=== PATIENT | male | born 1960 | race Caucasian/White ===

== ENCOUNTER 2017-04-12 08:52 | Day surgery (SDC) | payer OTHER ==
[2017-04-10 10:23] VITALS: BMI 28.3
[~2017-04-12 08:52] MED LIST: DEXAMETHASONE SOD PHOSPHATE 10 MG/ML 1 ML VIAL IV ONE; HEPARIN SODIUM,PORCINE 5,000 UNIT/ML 1 ML VIAL SQ ONE; LACTATED RINGERS 1,000 ML IV SCH; LIDOCAINE 1% 20 ML VIAL (10MG/ML) FOR IV START INTRADERMA PRN; MIDAZOLAM 2 MG/2 ML VIAL IV PRN; ONDANSETRON 4 MG/2 ML VIAL IVP ONE; SCOPOLAMINE 1.5MG/72HR PATCH TRANSDERM ONE; ceFAZolin IN SWFI 2 GM/20 ML SYRINGE IVP ONE
--- NOTE | 2017-04-12 11:35 | P.GSHP ---
History of Present Illness H&P Date: 04/12/17 Chief Complaint: Right inguinal hernia This a 56-year-old male referred from Dr. Hernández. Patient rents today for laparoscopic robotic system repair of right inguinal hernia. Past Medical History Past Medical History: Hypertension, Rheumatoid Arthritis (RA) Additional Past Medical History / Comment(s): INGUINAL HERNIA History of Any Multi-Drug Resistant Organisms: None Reported Past Surgical History: Appendectomy, Hernia Repair Additional Past Surgical History / Comment(s): UMBILICAL HERNIA Past Anesthesia/Blood Transfusion Reactions: No Reported Reaction Smoking Status: Current every day smoker - Past Family History Mother Additional Family Medical History / Comment(s): heart problems Father Family Medical History: No Reported History Medications and Allergies Home Medications Medication Instructions Recorded Confirmed Type Cyclobenzaprine [Flexeril] 10 mg PO DAILY PRN 01/30/15 04/12/17 History HYDROcodone/APAP 7.5-325MG [[place] 1 each PO Q4H PRN #60 tab 02/04/15 04/10/17 Rx 7.5] Lisinopril [Zestril] 5 mg PO DAILY 04/10/17 04/10/17 History Temazepam [Restoril] 15 mg PO HS PRN 04/10/17 04/12/17 History Allergies Allergy/AdvReac Type Severity Reaction Status Date / Time No Known Allergies Allergy Verified 04/12/17 08:58 Surgical - Exam Vital Signs Temp Pulse Resp BP Pulse Ox 98 F 68 16 117/79 97 04/12/17 09:03 04/12/17 09:03 04/12/17 09:03 04/12/17 09:03 04/12/17 09:03 - General well developed, no distress - Eyes PERRL - ENT normal pinna - Neck no masses - Respiratory normal expansion - Cardiovascular Rhythm: regular - Abdomen Abdomen: soft, non tender Hernia: inguinal (Reducible right inguinal hernia) Assessment and Plan Assessment: Right inguinal hernia. We'll perform laparoscopic robotic assist repair.
[2017-04-12] MEDS ORDERED: KETOROLAC 30 MG/ML 1 ML VIAL ONE (12:50)
[2017-04-12] MEDS ORDERED: GLYCOPYRROLATE 0.2 MG/ML 2 ML VIAL ONE (12:50)
[2017-04-12] MEDS ORDERED: fentaNYL (PF) 50 MCG/ML 2 ML AMP ONE (12:50)
[2017-04-12] MEDS ORDERED: PHENYLEPHRINE-0.9% NACL SYG 1 MG/10 ML SYRINGE ONE (12:50)
[2017-04-12] MEDS ORDERED: ROCURONIUM BROMIDE 10 MG/ML 10 ML VIAL IV ONE (12:50)
[2017-04-12] MEDS ORDERED: PROPOFOL 10 MG/ML 20 ML VIAL IV ONE (12:50)
[2017-04-12] MEDS ORDERED: NEOSTIGMINE 1 MG/ML 10 ML VIAL ONE (12:50)
[2017-04-12] MEDS ORDERED: SUCCINYLCHOLINE CHLORIDE VIAL 200 MG/10 ML VIAL IV ONE (12:50)
[2017-04-12] MEDS ORDERED: MIDAZOLAM 2 MG/2 ML VIAL ONE (12:50)
[2017-04-12] MEDS ORDERED: LIDOCAINE 1% INJ 10MG/ML (20 ML MDV) ONE (12:50)
[2017-04-12] MEDS ORDERED: BUPIVACAINE (PF) 0.25% 30 ML VIAL SQ ONE (13:15)
[2017-04-12] MEDS: HYDROmorphone 0.5 MG/0.5 ML SYRINGE IVP PRN ×3 (14:10→14:25)
[2017-04-12 14:23] VITALS: TEMP 98.1
[2017-04-12 15:38] VITALS: BP 126/70; PULSE 78; RESP 18
--- NOTE | 2017-04-12 18:40 | P.OP ---
Date of Procedure: 04/12/17 Preoperative Diagnosis: Right inguinal hernia Postoperative Diagnosis: Right inguinal hernia Adhesions Right inguinal lipoma Procedure(s) Performed: Laparoscopic robotic spare of right inguinal hernia Laparoscopic lysis of adhesions Laparoscopic excision of right cord lipoma Anesthesia: VERENICE Surgeon: Julien Headley Estimated Blood Loss (ml): 5 Pathology: other (Right cord lipoma) Condition: stable Disposition: PACU Description of Procedure: The patient's placed on the operating table in the supine position. The patient received general anesthesia. The patient's abdomen was prepped and draped in usual sterile fashion. The skin was anesthetized 1% local Xylocaine at the incision sites. Using an 11 blade a skin incision was made at the umbilicus. The fascia was grasped with a [place] and then the peritoneal cavity was entered with the Veress needle. Position of the Veress needle was confirmed with a positive drop test. After adequate insufflation a 5 mm trocar was placed into the peritoneal cavity. The Laparoscope was placed the peritoneal cavity. And a robotic 8 mm trocar was placed in the right lateral position and then another 8 mm robotic trochars placed in the left lateral position. The original 5 mm trocar was exchanged for a 12 mm trocar. There were extensive adhesions in the midline. This was related to previous ventral hernia repair. Using electrocautery the adhesions were lysed. The patient was placed in reverse Trendelenburg and then the patient was docked to the robot. Next the peritoneum over top of the hernia was incised and then using blunt and sharp dissection and electrocautery the hernia sac was dissected free from the floor of the inguinal canal. The hernia sac was completely reduced into the peritoneal cavity. Lipoma was dissected free from the spermatic cord and transected. And then using the Pro telecommunications officer mesh the hernia was repaired. The peritoneum was then sutured with 20V lock suture. The patient was then undocked the robot. The needle was withdrawn from the peritoneal cavity. The lipoma was sent to pathology. The umbilical trocar site was closed with 0 Ethibond suture. The skin was closed interrupted 3-0 Monocryl suture. Dermabond dressing was applied. Patient was sent to recovery in stable condition.
== END 2017-04-12 15:40 | disposition home or self-care (01) ==
LOC: OR 08:52
PROVIDERS: ATTEND Surgery
DX: K40.90 Unilateral inguinal hernia, without obstruction or gangrene, not specified as recurrent (principal); K66.0 Peritoneal adhesions (postprocedural) (postinfection); D17.6 Benign lipomatous neoplasm of spermatic cord; I10 Essential (primary) hypertension; M06.9 Rheumatoid arthritis, unspecified; F17.200 Nicotine dependence, unspecified, uncomplicated; Z79.899 Other long term (current) drug therapy
CPT/HCPCS: 88302; 49650; C1781; J2250; J0330; J1100; J2710; J0690; J2405; J2001; J3010; J1885; J2370; J2704; J1170; 88304

== ENCOUNTER 2018-03-27 21:04 | Emergency (ER) | payer OTHER ==
[2018-03-27 21:15] VITALS: RESP 18; TEMP 98.2
[2018-03-27] MEDS ORDERED: DEXAMETHASONE SOD PHOSPHATE 10 MG/ML 1 ML VIAL IM STA (21:29)
[2018-03-27] MEDS ORDERED: KETOROLAC 60 MG/2 ML VIAL IM STA (21:29)
[2018-03-27] MEDS ORDERED: ORPHENADRINE 30 MG/ML 2 ML VIAL IM STA (21:29)
--- NOTE | 2018-03-27 21:49 | XR ---
EXAMINATION TYPE: XR shoulder complete RT DATE OF EXAM: 03/27/2018 COMPARISON: NONE HISTORY: Pain TECHNIQUE: 3 views FINDINGS: I see no fracture nor dislocation. Glenohumeral joint is anatomic. There are no pathologic calcifications IMPRESSION: Negative right shoulder exam.
--- NOTE | 2018-03-27 21:59 | ED ---
General Adult HPI - General Chief complaint: Extremity Problem,Nontraumatic Stated complaint: rt shoulder pain Time Seen by Provider: 03/27/18 21:18 Source: patient, RN notes reviewed, old records reviewed Mode of arrival: ambulatory Limitations: no limitations - History of Present Illness Initial comments: Patient is a 57 year old male presents to ED for R shoulder pain and neck pain after using log splitter today. He has chronic right shoulder pain and has history of RA. Patient states that his pain is owrse with movement. No falls or trauma. - Related Data Home Medications Medication Instructions Recorded Confirmed Cyclobenzaprine [Flexeril] 10 mg PO TID PRN 01/30/15 03/27/18 Lisinopril [Zestril] 5 mg PO DAILY 04/10/17 03/27/18 Temazepam [Restoril] 15 mg PO HS PRN 04/10/17 03/27/18 HYDROcodone/APAP 10-325MG [[place] 1 tab PO Q6H PRN 03/27/18 03/27/18 10-325] Previous Rx's Medication Instructions Recorded Dexamethasone 0.75 mg PO DAILY #12 tab 03/27/18 Allergies Allergy/AdvReac Type Severity Reaction Status Date / Time No Known Allergies Allergy Verified 03/27/18 21:41 Review of Systems ROS Statement: Those systems with pertinent positive or pertinent negative responses have been documented in the HPI. ROS Other: All systems not noted in ROS Statement are negative. Past Medical History Past Medical History: Hypertension, Rheumatoid Arthritis (RA) Additional Past Medical History / Comment(s): INGUINAL HERNIA History of Any Multi-Drug Resistant Organisms: None Reported Past Surgical History: Appendectomy, Hernia Repair Additional Past Surgical History / Comment(s): UMBILICAL HERNIA Past Anesthesia/Blood Transfusion Reactions: No Reported Reaction Past Psychological History: No Psychological Hx Reported Smoking Status: Current every day smoker - Past Family History Mother Additional Family Medical History / Comment(s): heart problems Father Family Medical History: No Reported History General Exam - General Exam Comments Initial Comments: Well appearing 57 juana ol dmale, no distress. Limitations: no limitations General appearance: alert, in no apparent distress Head exam: Present: atraumatic, normocephalic, normal inspection Eye exam: Present: normal appearance, PERRL, EOMI. Absent: scleral icterus, conjunctival injection, periorbital swelling ENT exam: Present: normal exam, mucous membranes moist Neck exam: Present: normal inspection. Absent: tenderness, meningismus, lymphadenopathy Respiratory exam: Present: normal lung sounds bilaterally. Absent: respiratory distress, wheezes, rales, rhonchi, stridor Cardiovascular Exam: Present: regular rate, normal rhythm, normal heart sounds. Absent: systolic murmur, diastolic murmur, rubs, gallop, clicks Extremities exam: Present: normal inspection, full ROM, normal capillary refill. Absent: tenderness, pedal edema, joint swelling, calf tenderness Right Shoulder Exam: Present: normal inspection, tenderness (over shoulder and trapeziuw). Absent: full ROM (unable to abduct greatere than 90 degrees. Patient reports chronic. ) Upper Arm exam: Present: normal inspection, full ROM Back exam: Present: normal inspection Neurological exam: Present: alert, oriented X3, CN II-XII intact Psychiatric exam: Present: normal affect, normal mood Skin exam: Present: warm, dry, intact, normal color. Absent: rash Course Vital Signs 03/27/18 03/27/18 21:10 22:23 Temperature 98.2 F Pulse Rate 82 83 Respiratory 18 18 Rate Blood Pressure 159/86 152/91 O2 Sat by Pulse 97 94 L Oximetry Medical Decision Making - Medical Decision Making 57 year old male with acute exacerbation of chronic right shoulder pain. Worse today after using aeronautical engineering technologist. Patient reports worse with memvement. He can chronically not abduct or flex shoulder greater than 90 degrees. Concernn for a chronic rotator cuff tear. Patient given IM toradol, norflex, and decadron. Will DC with medrol dose pack, patient already takes nroco and flexeril. Discussed using ibuprofen. Discussed close follow up with PCP. Return parameters discussed. - Radiology Data Radiology results: report reviewed Normal shoulder xray. Disposition Clinical Impression: Rotator cuff dysfunction, Neck strain Disposition: HOME SELF-CARE Condition: Good Instructions: Rotator Cuff Injury (ED), Muscle Spasm (ED) Additional Instructions: Patient advised to follow-up with primary care physician. Continue taking medication as prescribed, add steroid pack. Return to emergency department if any alarming signs or symptoms occur. Prescriptions: Dexamethasone 0.75 mg PO DAILY #12 tab Is patient prescribed a controlled substance at d/c from ED?: No Referrals: Ulysses Hernández Jr, [Primary Care Provider] - 1-2 days Time of Disposition: 21:58
[2018-03-27 22:24] VITALS: BP 152/91; PULSE 83
== END 2018-03-27 22:29 | disposition home or self-care (01) ==
LOC: EC 21:04
DX: S16.1XXA Strain of muscle, fascia and tendon at neck level, initial encounter (principal); M79.9 Soft tissue disorder, unspecified; M25.511 Pain in right shoulder; I10 Essential (primary) hypertension; M06.9 Rheumatoid arthritis, unspecified; F17.200 Nicotine dependence, unspecified, uncomplicated; Z79.899 Other long term (current) drug therapy
CPT/HCPCS: 73030; 99284; 96372 ×3; J1100; J2360; J1885

== ENCOUNTER 2018-05-07 07:43 | Day surgery (SDC) | payer OTHER ==
[2018-05-03 08:47] VITALS: BMI 28.5
[~2018-05-07 07:43] MED LIST changes: -DEXAMETHASONE SOD PHOSPHATE 10 MG/ML 1 ML VIAL IV ONE; -LACTATED RINGERS 1,000 ML IV SCH; -LIDOCAINE 1% 20 ML VIAL (10MG/ML) FOR IV START INTRADERMA PRN; -MIDAZOLAM 2 MG/2 ML VIAL IV PRN; -ONDANSETRON 4 MG/2 ML VIAL IVP ONE; -SCOPOLAMINE 1.5MG/72HR PATCH TRANSDERM ONE
[2018-05-07] MEDS ORDERED: fentaNYL (PF) 50 MCG/ML 2 ML AMP IV ONE (08:00)
[2018-05-07] MEDS ORDERED: MIDAZOLAM 2 MG/2 ML VIAL IV ONE (08:00)
[2018-05-07] MEDS ORDERED: LIDOCAINE 1% 20 ML VIAL (10MG/ML) FOR IV START INTRADERMA ONE (08:32)
[2018-05-07] MEDS ORDERED: LACTATED RINGERS 1,000 ML IV ONE ×2 (08:32→10:39)
[2018-05-07] MEDS ORDERED: ONDANSETRON 4 MG/2 ML VIAL IVP ONE (08:49)
[2018-05-07] MEDS ORDERED: DEXAMETHASONE SOD PHOSPHATE 10 MG/ML 1 ML VIAL IV ONE (08:49)
--- NOTE | 2018-05-07 08:59 | P.GSHP ---
History of Present Illness H&P Date: 05/07/18 Chief Complaint: Recurrent right inguinal hernia This a 57-year-old male who presents today for open repair of recurrent right inguinal hernia. Patient developed a right inguinal hernia. He has a mass in his right groin. Past Medical History Past Medical History: Hypertension, Liver Disease, Rheumatoid Arthritis (RA) Additional Past Medical History / Comment(s): INGUINAL HERNIA, migraines, hepatitis C, History of Any Multi-Drug Resistant Organisms: None Reported Past Surgical History: Appendectomy, Hernia Repair Additional Past Surgical History / Comment(s): UMBILICAL HERNIA, rt inguinal hernia repair, Past Anesthesia/Blood Transfusion Reactions: No Reported Reaction Smoking Status: Current every day smoker - Past Family History Mother Family Medical History: No Reported History Additional Family Medical History / Comment(s): . Father Family Medical History: No Reported History Medications and Allergies Home Medications Medication Instructions Recorded Confirmed Type Cyclobenzaprine [Flexeril] 10 mg PO TID PRN 01/30/15 05/07/18 History Temazepam [Restoril] 15 mg PO HS PRN 04/10/17 05/07/18 History HYDROcodone/APAP 10-325MG [[place] 1 tab PO QID PRN 03/27/18 05/07/18 History 10-325] Ibuprofen [Advil] 200 mg PO Q8HR PRN 05/03/18 05/07/18 History Lisinopril [Prinivil] 5 mg PO QAM 05/03/18 05/07/18 History Allergies Allergy/AdvReac Type Severity Reaction Status Date / Time No Known Allergies Allergy Verified 05/07/18 08:22 Surgical - Exam Vital Signs Temp Pulse Resp BP Pulse Ox 98.1 F 67 16 150/79 96 05/07/18 08:20 05/07/18 08:20 05/07/18 08:20 05/07/18 08:20 05/07/18 08:20 - General well developed, well nourished, no distress - Eyes PERRL - ENT normal pinna - Neck no masses - Respiratory normal expansion - Cardiovascular Rhythm: regular - Abdomen Abdomen: soft, non tender Hernia: inguinal (Reducible right inguinal hernia) Assessment and Plan Assessment: Large reducible inguinal right inguinal hernia. We'll perform open repair. Patient aware the risk of possible orchiectomy.
--- NOTE | 2018-05-07 09:18 | P.ONQ ---
Anesthesiology Proc Note - PNB - Peripheral Nerve Block Performed Right Transversus Abdominis Single Time Out Performed: Yes (0858) Procedure Start Time: 08:58 Procedure Stop Time: 09:05 Indication: Acute Post-Operative Pain, Dx/Pain Location (Right Groin Pain), Requested by physician Sedation Type: Awake Preparation: Sterile Prep Position: Supine Catheter: None Needle Types: On-Q Needle Size: 100mm (4") Needle Gauge: 21 Technique: Ultrasound Injectate: 0.5% Ropivacaine (see comment for volume) (20ml) Blood Aspirated: No Pain Paresthesia on Injection Noted: No Resistance on Injection: Normal Events: Uneventful and Well Tolerated
[2018-05-07] MEDS ORDERED: fentaNYL (PF) 50 MCG/ML 2 ML AMP ONE (09:29)
[2018-05-07] MEDS ORDERED: GLYCOPYRROLATE 0.2 MG/ML 2 ML VIAL ONE (09:29)
[2018-05-07] MEDS ORDERED: ROPIVACAINE 5 MG/ML 30 ML VIAL ONE (09:29)
[2018-05-07] MEDS ORDERED: MIDAZOLAM 2 MG/2 ML VIAL ONE (09:29)
[2018-05-07] MEDS ORDERED: SUCCINYLCHOLINE CHLORIDE 100 MG/5 ML SYR IV ONE (09:29)
[2018-05-07] MEDS ORDERED: ePHEDrine SULFATE/0.9% NACL/PF 50 MG/5 ML SYRINGE IV ONE (09:29)
[2018-05-07] MEDS ORDERED: PROPOFOL 10 MG/ML 20 ML VIAL IV ONE (09:29)
[2018-05-07] MEDS ORDERED: ROCURONIUM BROMIDE 10 MG/ML 10 ML VIAL IV ONE (09:29)
[2018-05-07] MEDS ORDERED: NEOSTIGMINE 1 MG/ML 10 ML VIAL ONE (09:29)
[2018-05-07] MEDS ORDERED: BUPIVACAIN-EPI 0.25%-1:200,000 30 ML VIAL SQ ONE (09:53)
--- NOTE | 2018-05-07 10:54 | P.OP ---
Date of Procedure: 05/07/18 Preoperative Diagnosis: Recurrent right inguinal hernia Postoperative Diagnosis: Recurrent right inguinal hernia Procedure(s) Performed: (Open repair recurrent right inguinal hernia Anesthesia: VERENICE Surgeon: Julien Headley Estimated Blood Loss (ml): 10 Pathology: other (Hernia sac) Condition: stable Disposition: PACU Description of Procedure: DESCRIPTION OF PROCEDURE: The patient was placed in the supine position after receiving adequate anesthesia. Patients groin was prepped and draped in the usual sterile fashion. A standard hernia incision was made and the subcutaneous tissues were divided with electrocautery. The fascia of the external oblique was exposed. A johnny the fascia was made with #15 blade. The fascia was then opened with pair of Metzenbaum scissors. A Weitlaner retractor was placed in the wound and the cord structures were grasped and dissected free from the inguinal canal. A rubber Ellen drain was placed around the cord structures. The hernial sac was seen on the anterior-medial portion of the cord and this was dissected free from the cord. The hernia sac underwent a high ligation. Hernia sac was ligated with 0 Vicryl. Cirrhosis of pathology.. Using blunt finger dissection, the preperitoneal space was dissected and then the Prolene hernial mesh plug was placed into the prepared space. The inferior leaf was expanded. The superior leaf was secured to the pubic tubercle using 2-0 Prolene suture. The lateral portion of the superior leaf was incised and cords tied and secured to the transversalis fascia using 2-0 Prolene suture. Fascia of the external oblique was then closed using #0 Vicryl suture. The [place] drain was removed. The [place] fascia was then closed with 3-0 Vicryl suture and skin was closed with 3- 0 Monocryl. The patient tolerated the procedure well.
[2018-05-07 10:59] VITALS: RESP 18; TEMP 97.4
[2018-05-07] MEDS: HYDROmorphone 1 MG/ML 1 ML SYRINGE IVP ONE ×2 (11:05→11:10)
[2018-05-07] MEDS ORDERED: HYDROmorphone 1 MG/ML 1 ML SYRINGE IVP ONE (11:18)
[2018-05-07] MEDS ORDERED: HYDROcodone/APAP 10-325MG 1 EACH TAB PO ONE (12:55)
[2018-05-07 13:24] VITALS: BP 153/90; PULSE 71
== END 2018-05-07 13:42 | disposition home or self-care (01) ==
LOC: OR 07:43
PROVIDERS: ATTEND Surgery
DX: K40.91 Unilateral inguinal hernia, without obstruction or gangrene, recurrent (principal); M06.9 Rheumatoid arthritis, unspecified; I10 Essential (primary) hypertension; F17.210 Nicotine dependence, cigarettes, uncomplicated; Z86.19 Personal history of other infectious and parasitic diseases; Z79.891 Long term (current) use of opiate analgesic; Z79.899 Other long term (current) drug therapy
CPT/HCPCS: 49520; 64486; 88302; C1781; J2250; J1644; J1100; J2710; J2405; J3010; J1170; J2795; J0330; J2704; J0690

== ENCOUNTER 2022-02-17 20:07 | Emergency (ER) | payer OTHER ==
[2022-02-17 20:51] VITALS: BP 140/83; PULSE 91; RESP 16; TEMP 98
--- NOTE | 2022-02-17 21:37 | XR ---
PROCEDURE: XR ankle complete RT: 02/17/2022 9:04 PM CLINICAL INDICATION: swelling fall TECHNIQUE: Department protocol - 3 views COMPARISON: None FINDINGS: There is no fracture or malalignment. The soft tissues are unremarkable, other than relatively mild soft tissue swelling. IMPRESSION: No acute process.
--- NOTE | 2022-02-17 21:44 | ED ---
Lower Extremity Injury HPI - General Chief Complaint: Extremity Injury, Lower Stated Complaint: R ankle injury Time Seen by Provider: 02/17/22 21:37 Source: patient, RN notes reviewed, old records reviewed Mode of arrival: wheelchair Limitations: no limitations - History of Present Illness Initial Comments: This is a 61-year-old male DF for evaluation. Patient tripped rolling right ankle. Severe pain in the right ankle pain is worse and patient attempts to ambulate worse when he has range of motion of the right ankle no pain in the knee. No other injury noted. MD Complaint: ankle injury -: hour(s) Injury: Ankle: Right Type of Injury: inversion Place: home Severity: moderate Severity scale (1-10): 6 Improves With: nothing Worsens With: weight bearing Context: walking Associated Symptoms: swelling, able to partially bear weight, ambulatory Treatments Prior to Arrival: other (0) - Related Data Home Medications Medication Instructions Recorded Confirmed Cyclobenzaprine [Flexeril] 10 mg PO TID PRN 01/30/15 05/07/18 Temazepam [Restoril] 15 mg PO HS PRN 04/10/17 05/07/18 HYDROcodone/APAP 10-325MG [[place] 1 tab PO QID PRN 03/27/18 05/07/18 10-325] Ibuprofen [Advil] 200 mg PO Q8HR PRN 05/03/18 05/07/18 lisinopriL [Prinivil] 5 mg PO QAM 05/03/18 05/07/18 Allergies Allergy/AdvReac Type Severity Reaction Status Date / Time No Known Allergies Allergy Verified 05/07/18 08:22 Review of Systems ROS Statement: Those systems with pertinent positive or pertinent negative responses have been documented in the HPI. ROS Other: All systems not noted in ROS Statement are negative. Past Medical History Past Medical History: Hypertension, Liver Disease, Rheumatoid Arthritis (RA) Additional Past Medical History / Comment(s): INGUINAL HERNIA, migraines, hepatitis C, History of Any Multi-Drug Resistant Organisms: None Reported Past Surgical History: Appendectomy, Hernia Repair Additional Past Surgical History / Comment(s): UMBILICAL HERNIA, rt inguinal h ernia repair, Past Anesthesia/Blood Transfusion Reactions: No Reported Reaction Past Psychological History: No Psychological Hx Reported Past Alcohol Use History: None Reported Past Drug Use History: Marijuana - Past Family History Mother Family Medical History: No Reported History Additional Family Medical History / Comment(s): . Father Family Medical History: No Reported History General Exam Limitations: no limitations General appearance: alert, in no apparent distress Head exam: Present: atraumatic, normocephalic, normal inspection Eye exam: Present: normal appearance, PERRL, EOMI. Absent: scleral icterus, conjunctival injection, periorbital swelling ENT exam: Present: normal exam, mucous membranes moist Neck exam: Present: normal inspection. Absent: tenderness, meningismus, lymphadenopathy Respiratory exam: Present: normal lung sounds bilaterally. Absent: respiratory distress, wheezes, rales, rhonchi, stridor Cardiovascular Exam: Present: regular rate, normal rhythm, normal heart sounds. Absent: systolic murmur, diastolic murmur, rubs, gallop, clicks GI/Abdominal exam: Present: soft, normal bowel sounds. Absent: distended, tenderness, guarding, rebound, rigid Extremities exam: Present: tenderness, normal capillary refill, other (Tenderness to the lateral right ankle and right great toe). Absent: full ROM, pedal edema, joint swelling, calf tenderness Back exam: Present: normal inspection Neurological exam: Present: alert, oriented X3, CN II-XII intact Psychiatric exam: Present: normal affect, normal mood Skin exam: Present: warm, dry, intact, normal color. Absent: rash Course Vital Signs 02/17/22 20:48 Temperature 98 F Pulse Rate 91 Respiratory 16 Rate Blood Pressure 140/83 - Reevaluation(s) Reevaluation #1: 02/17/22 21:58 Medical record is reviewed Reevaluation #2: 02/17/22 21:58 Patient's pain is controlled Reevaluation #3: 02/17/22 21:58 Patient informed results and questions have been answered Medical Decision Making - Medical Decision Making 61 male to the emergency department for evaluation patient presents today for evaluation of right ankle sprain pain. Patient given ankle stirrup pain control can be discharged home - Radiology Data Radiology results: report reviewed (X-ray right ankle is negative for acute disease), image reviewed Disposition Clinical Impression: Right ankle sprain Disposition: HOME SELF-CARE Condition: Good Instructions (If sedation given, give patient instructions): Ankle Sprain (ED) Is patient prescribed a controlled substance at d/c from ED?: No Referrals: Ulysses Hernández Jr, DO [Primary Care Provider] - 1-2 days Time of Disposition: 21:50
[2022-02-17] MEDS ORDERED: IBUPROFEN 600 MG STARTER PACK 4 TAB BTL PO STA (22:00)
[2022-02-17] MEDS ORDERED: ACET/COD 300 MG/30 MG STARTER PACK 6 TAB BTL PO STA (22:00)
== END 2022-02-17 22:35 | disposition home or self-care (01) ==
LOC: EC 20:07
DX: S93.401A Sprain of unspecified ligament of right ankle, initial encounter (principal); I10 Essential (primary) hypertension; F12.90 Cannabis use, unspecified, uncomplicated; Z79.811 Long term (current) use of aromatase inhibitors; Z79.899 Other long term (current) drug therapy; W01.0XXA Fall on same level from slipping, tripping and stumbling without subsequent striking against object, initial encounter
CPT/HCPCS: 99283

== ENCOUNTER 2022-04-18 21:43 | Emergency (ER) | payer OTHER ==
[2022-04-18 21:54] VITALS: BP 160/74; PULSE 93; RESP 20; TEMP 98.8
== END 2022-04-18 23:12 | disposition left against medical advice (07) ==
LOC: EC 21:43
DX: Z53.21 Procedure and treatment not carried out due to patient leaving prior to being seen by health care provider (principal)
CPT/HCPCS: 87636; 99499

== ENCOUNTER 2022-04-19 09:34 | Emergency (ER) | payer OTHER ==
--- NOTE | 2022-04-19 10:31 | ED ---
General Adult HPI - General Chief complaint: Upper Respiratory Infection Stated complaint: covid+, chest pain Time Seen by Provider: 04/19/22 09:45 Source: family Mode of arrival: wheelchair Limitations: no limitations - History of Present Illness Initial comments: 61-year-old male past nuchal history of hypertension, hepatitis C who presents to the emergency department with cough, congestion and sore throat. She reports that he has had some of his symptoms since April 06 however yesterday the patient began developing a fever. He has been taking Advil for his symptoms without any improvement. He did come into the ER yesterday and was tested for influenza and Covid. He did not stay long enough to receive his results. He called his doctor's office who recommended that he go to the emergency department for evaluation. He denies any chest pain. No shortness of breath. No lower extremity edema. No other alleviating, precipitating or modifying factors - Related Data Home Medications Medication Instructions Recorded Confirmed Cyclobenzaprine [Flexeril] 10 mg PO TID PRN 01/30/15 05/07/18 Temazepam [Restoril] 15 mg PO HS PRN 04/10/17 05/07/18 HYDROcodone/APAP 10-325MG [[place] 1 tab PO QID PRN 03/27/18 05/07/18 10-325] Ibuprofen [Advil] 200 mg PO Q8HR PRN 05/03/18 05/07/18 lisinopriL [Prinivil] 5 mg PO QAM 05/03/18 05/07/18 Previous Rx's Medication Instructions Recorded Acetaminophen Tab [Tylenol Tab] 1,000 mg PO Q8HR #30 tablet 04/19/22 Codeine Phosphate/Guaifenesin 5 ml PO Q6H 3 Days #60 ml 04/19/22 [Codeine Phosphate/Guaifenesin 10-100 mg/5 ml] Nirmatrelvir/Ritonavir [Paxlovid 1 each PO BID #1 pack 04/19/22 2X150 mg-100 mg (Eua)] dexAMETHasone [Decadron] 6 mg PO DAILY #5 tablet 04/19/22 Allergies Allergy/AdvReac Type Severity Reaction Status Date / Time No Known Allergies Allergy Verified 04/19/22 09:41 Review of Systems ROS Statement: Those systems with pertinent positive or pertinent negative responses have been documented in the HPI. ROS Other: All systems not noted in ROS Statement are negative. Past Medical History Past Medical History: Hypertension, Liver Disease, Rheumatoid Arthritis (RA) Additional Past Medical History / Comment(s): INGUINAL HERNIA, migraines, hepatitis C, History of Any Multi-Drug Resistant Organisms: None Reported Past Surgical History: Appendectomy, Hernia Repair Additional Past Surgical History / Comment(s): UMBILICAL HERNIA, rt inguinal hernia repair, Past Anesthesia/Blood Transfusion Reactions: No Reported Reaction Past Psychological History: No Psychological Hx Reported Smoking Status: Current every day smoker Past Alcohol Use History: None Reported Past Drug Use History: Marijuana - Past Family History Mother Family Medical History: No Reported History Additional Family Medical History / Comment(s): . Father Family Medical History: No Reported History General Exam Limitations: no limitations General appearance: alert, in no apparent distress Head exam: Present: atraumatic, normocephalic, normal inspection Eye exam: Present: normal appearance, PERRL, EOMI. Absent: scleral icterus, conjunctival injection, periorbital swelling ENT exam: Present: normal exam, mucous membranes moist Neck exam: Present: normal inspection. Absent: tenderness, meningismus, lymphadenopathy Respiratory exam: Present: normal lung sounds bilaterally. Absent: respiratory distress, wheezes, rales, rhonchi, stridor Cardiovascular Exam: Present: regular rate, normal rhythm, normal heart sounds. Absent: systolic murmur, diastolic murmur, rubs, gallop, clicks GI/Abdominal exam: Present: soft, normal bowel sounds. Absent: distended, tenderness, guarding, rebound, rigid Extremities exam: Present: normal inspection, full ROM, normal capillary refill. Absent: tenderness, pedal edema, joint swelling, calf tenderness Back exam: Present: normal inspection Neurological exam: Present: alert, oriented X3, CN II-XII intact Psychiatric exam: Present: normal affect, normal mood Skin exam: Present: warm, dry, intact, normal color. Absent: rash Course Vital Signs 04/19/22 04/19/22 09:35 10:45 Temperature 99.1 F 98.7 F Pulse Rate 87 76 Respiratory 20 18 Rate Blood Pressure 126/80 130/87 O2 Sat by Pulse 95 97 Oximetry EKG Findings - EKG Comments: EKG Findings:: EKG demonstrates sinus rhythm with rate of 83. [place] interval 198. QRS 92. QTC of 394. No acute ST segment elevations or depressions. EKG interpreted by myself Medical Decision Making - Medical Decision Making On arrival patient was placed into room 8. A thorough history and physical exam was performed. I did review the patient's results from yesterday which Demser that he is Covid positive. Patient requesting treatment options for Covid. Instructed that he should take Tylenol every 8 hours for fever control. Recommended that he discontinue Advil. He will also be started on Decadron 6 mg daily,Paxlovid and codeine cough syrups. I did speak with the primary care physician Dr. Hernández in regards to patient's treatment. States that he would follow with the patient's tomorrow and contact him for a telehealth visit. The patient have any new or worsening symptoms, he should return to the emergency room. Patient agreeable to treatment plan he was discharged home in stable condition Disposition Clinical Impression: COVID-19, Fever Disposition: HOME SELF-CARE Condition: Stable Instructions (If sedation given, give patient instructions): COVID-19 (Coronavirus Disease 2019) (ED) Additional Instructions: Please alternate taking the Motrin and Tylenol every 4 hours for fever control. Take the Paxlovid as directed. Follow up with your doctor in 2-4 days and return for any new or worsening symptoms Prescriptions: Codeine Phosphate/Guaifenesin [Codeine Phosphate/Guaifenesin 10-100 mg/5 ml] 5 ml PO Q6H 3 Days #60 ml dexAMETHasone [Decadron] 6 mg PO DAILY #5 tablet Nirmatrelvir/Ritonavir [Paxlovid 2X150 mg-100 mg (Eua)] 1 each PO BID #1 pack Acetaminophen Tab [Tylenol Tab] 1,000 mg PO Q8HR #30 tablet Is patient prescribed a controlled substance at d/c from ED?: No Referrals: Ulysses Hernández Jr, DO [Primary Care Provider] - 1-2 days Time of Disposition: 10:31
[2022-04-19 11:01] VITALS: BP 130/87; PULSE 76; RESP 18; TEMP 98.7
== END 2022-04-19 10:45 | disposition home or self-care (01) ==
LOC: EC 09:34
DX: U07.1 COVID-19 (principal); I10 Essential (primary) hypertension; M06.9 Rheumatoid arthritis, unspecified; F17.200 Nicotine dependence, unspecified, uncomplicated; F12.90 Cannabis use, unspecified, uncomplicated; Z79.899 Other long term (current) drug therapy
CPT/HCPCS: 93005; 99284

== ENCOUNTER 2023-07-22 16:54 | Emergency (ER) | payer OTHER ==
[2023-07-22 17:07] VITALS: TEMP 98.7
[2023-07-22 17:32] LABS: Basophils % (A) 0 %; Eosinophils # (A) 0.1 k/uL (0-0.7); Eosinophils % (A) 1 %; HCT 46.4 % (39.0-53.0); HGB 15.2 gm/dL (13.0-17.5); Lymphocytes # (A) 1.8 k/uL (1.0-4.8); Lymphocytes % (A) 18 %; MCH 29.7 pg (25.0-35.0); MCHC 32.7 g/dL (31.0-37.0); MCV 90.9 fL (80.0-100.0); Mean Platelet Volume 7.7; Monocytes # (A) 0.6 k/uL (0-1.0); Monocytes % (A) 6 %; Neutrophils # (A) 7.3 k/uL (1.3-7.7); Neutrophils % (A) 73 %; Platelet Count 259 k/uL (150-450); RBC 5.11 m/uL (4.30-5.90); RDW 13.3 % (11.5-15.5); WBC 9.9 k/uL (3.8-10.6)
[2023-07-22 17:42] LABS: ALT 30 U/L (4-49); AST 26 U/L (17-59); African American GFR (CKD) 54 (>60 ml/min/1.73 sqM); Albumin 3.8 g/dL (3.5-5.0); Alkaline Phosphatase 37 U/L (38-126); Anion Gap 8 mmol/L; Blood Urea Nitrogen 15 mg/dL (9-20); Calcium 9.4 mg/dL (8.4-10.2); Carbon Dioxide 23 mmol/L (22-30); Chloride 109 mmol/L (98-107); Glucose 122 mg/dL (74-99); Non-African American GFR(CKD) 47 (>60 ml/min/1.73 sqM); Sodium 140 mmol/L (137-145); Total Bilirubin 0.3 mg/dL (0.2-1.3)
--- NOTE | 2023-07-22 17:43 | XR ---
EXAMINATION TYPE: XR chest 2V DATE OF EXAM: 07/22/2023 5:28 PM CLINICAL INDICATION:Male, 62 years old with history of cough; PHH COMPARISON: None TECHNIQUE: XR chest 2V. Frontal and lateral views of the chest.. FINDINGS: Heart is enlarged. Mediastinum unremarkable. There are central congestive changes and diffusely increased interstitial markings suggestive of mackenzie a. No focal consolidation, pleural effusion, or pneumothorax. No acute bony pathology evident. IMPRESSION: Cardiomegaly with findings suggesting vascular congestion and interstitial edema. Correlate for CHF.
--- NOTE | 2023-07-22 18:19 | ED ---
General Adult HPI - General Chief complaint: Shortness of Breath Stated complaint: SOB coughing Time Seen by Provider: 07/22/23 17:02 Source: patient, RN notes reviewed, old records reviewed Mode of arrival: ambulatory Limitations: no limitations - History of Present Illness Initial comments: 62-year-old male presents for evaluation of cough and dyspnea. Patient states that for the past 2 years he has had a persistent productive cough. He states this occurred after a COVID infection 2 years ago. He states that he also lost his voice at that time and has not regained his normal voice. He denies fever. Denies chest pain. Denies lower extremity pain or swelling. States he is a current smoker. - Related Data Home Medications Medication Instructions Recorded Confirmed HYDROcodone/APAP 10-325MG [[place] 1 tab PO QID PRN 03/27/18 07/22/23 10-325] Atorvastatin [Lipitor] 10 mg PO DAILY 07/22/23 07/22/23 Losartan [Cozaar] 25 mg PO DAILY 07/22/23 07/22/23 Previous Rx's Medication Instructions Recorded Albuterol Inhaler [Ventolin Hfa 1 - 2 puff INHALATION Q4HR PRN #1 07/22/23 Inhaler] each predniSONE 50 mg PO DAILY #5 tab 07/22/23 Allergies Allergy/AdvReac Type Severity Reaction Status Date / Time No Known Allergies Allergy Verified 07/22/23 18:58 Review of Systems ROS Statement: Those systems with pertinent positive or pertinent negative responses have been documented in the HPI. ROS Other: All systems not noted in ROS Statement are negative. Past Medical History Past Medical History: Hypertension, Liver Disease, Rheumatoid Arthritis (RA) Additional Past Medical History / Comment(s): INGUINAL HERNIA, migraines, hepatitis C, History of Any Multi-Drug Resistant Organisms: None Reported Past Surgical History: Appendectomy, Hernia Repair Additional Past Surgical History / Comment(s): UMBILICAL HERNIA, rt inguinal hernia repair, Past Anesthesia/Blood Transfusion Reactions: No Reported Reaction Past Psychological History: No Psychological Hx Reported Smoking Status: Current every day smoker Past Alcohol Use History: None Reported Past Drug Use History: Marijuana - Past Family History Mother Family Medical History: No Reported History Additional Family Medical History / Comment(s): . Father Family Medical History: No Reported History General Exam Limitations: no limitations General appearance: alert, in no apparent distress Head exam: Present: atraumatic, normocephalic Eye exam: Present: normal appearance, PERRL ENT exam: Present: normal exam Neck exam: Present: normal inspection. Absent: tenderness, meningismus Respiratory exam: Present: wheezes, decreased breath sounds. Absent: respiratory distress, rales, rhonchi Cardiovascular Exam: Present: regular rate, normal rhythm GI/Abdominal exam: Present: soft. Absent: distended, tenderness, guarding Extremities exam: Present: normal inspection, normal capillary refill. Absent: pedal edema, calf tenderness Neurological exam: Present: alert, oriented X3 Psychiatric exam: Present: normal affect, normal mood Skin exam: Present: warm, dry, intact. Absent: cyanosis, diaphoretic Course Vital Signs 07/22/23 16:57 Temperature 98.7 F Pulse Rate 83 Respiratory 22 Rate Blood Pressure 179/96 O2 Sat by Pulse 99 Oximetry Medical Decision Making - Medical Decision Making Was pt. sent in by a medical professional or institution (, PA, CIGARETTE CATCHER, urgent care, hospital, or senior living...) When possible be specific @ -No Did you speak to anyone other than the patient for history (EMS, parent, family, police, friend...)? What history was obtained from this source @ -No Did you review nursing and triage notes (agree or disagree)? Why? @ -I reviewed and agree with nursing and triage notes Were old charts reviewed (outside hosp., previous admission, EMS record, old EKG, old radiological studies, urgent care reports/EKG's, senior living records)? Report findings @ -No old charts were reviewed Differential Diagnosis (chest pain, altered mental status, abdominal pain women, abdominal pain men, vaginal bleeding, weakness, fever, dyspnea, syncope, headache, dizziness, GI bleed, back pain, seizure, CVA, palpatations, mental health, musculoskeletal)? @ -Not applicable EKG interpreted by me (3pts min.). @ -[EKG sinus rhythm rate of 73, [place] interval 205, QRS duration 94, QTc [address] segment elevation. X-rays interpreted by me (1pt min.). @ -Chest x-ray suggestive of interstitial prominence, either CHF versus pulmonary fibrosis CT interpreted by me (1pt min.). @ -None done U/S interpreted by me (1pt. min.). @ -None done What testing was considered but not performed or refused? (CT, X-rays, U/S, labs)? Why? @ -None What meds were considered but not given or refused? Why? @ -None Did you discuss the management of the patient with other professionals (professionals i.e. , PA, CIGARETTE CATCHER, lab, RT, psych nurse, social insurance specialist, mc kay machine operator, teacher, biological technical officer, hospice case manager)? Give summary @ -No Was smoking cessation discussed for >3mins.? @ -No Was critical care preformed (if so, how long)? @ -No Were there social determinants of health that impacted care today? How? (Homelessness, low income, unemployed, alcoholism, drug addiction, transportation, low edu. Level, literacy, decrease access to med. care, [facility], rehab)? @ -No Was there de-escalation of care discussed even if they declined (Discuss DNR or withdrawal of care, Hospice)? DNR status @ -No What co-morbidities impacted this encounter? (DM, HTN, Smoking, COPD, CAD, Cancer, CVA, ARF, Chemo, Hep., AIDS, mental health diagnosis, sleep apnea, morbid obesity)? @Smoker Was patient admitted / discharged? Hospital course, mention meds given and route, prescriptions, significant lab abnormalities, going to OR and other pertinent info. @ -62-year-old male with 2 years of cough, loss of voice. Chest x-ray negative for focal pneumonia, likely pulmonary fibrosis versus CHF. Troponin and BNP are unremarkable. I did CT of the soft tissue neck which did not show any laryngeal mass or acute findings. I still would recommend direct visualization with ENT. I recommend he follows closely with his primary care provider. Return parameters discussed. Undiagnosed new problem with uncertain prognosis? @ -No Drug Therapy requiring intensive monitoring for toxicity (Heparin, Nitro, Insulin, Cardizem)? @ -No Were any procedures done? @ -No Diagnosis/symptom? @ -Chronic bronchitis Acute, or Chronic, or Acute on Chronic? @ -[Chronic Uncomplicated (without systemic symptoms) or Complicated (systemic symptoms)? @ -Default Side effects of treatment? @ -No Exacerbation, Progression, or Severe Exacerbation? @ -No Poses a threat to life or bodily function? How? (Chest pain, [place], [place], pneumonia, PE, COPD, DKA, ARF, appy, cholecystitis, CVA, Diverticulitis, Homicidal, Suicidal, threat to staff... and all critical care pts) @ -No low risk at this time - Lab Data Result diagrams: 07/22/23 17:22 07/22/23 17:22 Lab Results 07/22/23 07/22/23 07/22/23 Range/Units 17:22 17:22 18:00 WBC 9.9 (3.8-10.6) k/uL RBC 5.11 (4.30-5.90) m/uL Hgb 15.2 (13.0-17.5) gm/dL Hct 46.4 (39.0-53.0) % MCV 90.9 (80.0-100.0) fL MCH 29.7 (25.0-35.0) pg MCHC 32.7 (31.0-37.0) g/dL RDW 13.3 (11.5-15.5) % Plt Count 259 (150-450) k/uL MPV 7.7 Neutrophils % 73 % Lymphocytes % 18 % Monocytes % 6 % Eosinophils % 1 % Basophils % 0 % Neutrophils # 7.3 (1.3-7.7) k/uL Lymphocytes # 1.8 (1.0-4.8) k/uL Monocytes # 0.6 (0-1.0) k/uL Eosinophils # 0.1 (0-0.7) k/uL Basophils # 0.0 (0-0.2) k/uL PT 10.0 (10.0-12.5) sec INR 0.9 (<1.2) APTT 23.8 (22.0-30.0) sec Sodium 140 (137-145) mmol/L Potassium 4.0 (3.5-5.1) mmol/L Chloride 109 H (98-107) mmol/L Carbon Dioxide 23 (22-30) mmol/L Anion Gap 8 mmol/L BUN 15 (9-20) mg/dL Creatinine 1.58 H (0.66-1.25) mg/dL Est GFR (CKD-EPI)AfAm 54 (>60 ml/min/1.73 sqM) Est GFR (CKD-EPI)NonAf 47 (>60 ml/min/1.73 sqM) Glucose 122 H (74-99) mg/dL Calcium 9.4 (8.4-10.2) mg/dL Magnesium (1.6-2.3) mg/dL Total Bilirubin 0.3 (0.2-1.3) mg/dL AST 26 (17-59) U/L ALT 30 (4-49) U/L Alkaline Phosphatase 37 L (38-126) U/L Troponin I (0.000-0.034) ng/mL NT-Pro-B Natriuret Pep pg/mL Total Protein 7.0 (6.3-8.2) g/dL Albumin 3.8 (3.5-5.0) g/dL 07/22/23 07/22/23 Range/Units 18:00 18:00 WBC (3.8-10.6) k/uL RBC (4.30-5.90) m/uL Hgb (13.0-17.5) gm/dL Hct (39.0-53.0) % MCV (80.0-100.0) fL MCH (25.0-35.0) pg MCHC (31.0-37.0) g/dL RDW (11.5-15.5) % Plt Count (150-450) k/uL MPV Neutrophils % % Lymphocytes % % Monocytes % % Eosinophils % % Basophils % % Neutrophils # (1.3-7.7) k/uL Lymphocytes # (1.0-4.8) k/uL Monocytes # (0-1.0) k/uL Eosinophils # (0-0.7) k/uL Basophils # (0-0.2) k/uL PT (10.0-12.5) sec INR (<1.2) APTT (22.0-30.0) sec Sodium (137-145) mmol/L Potassium (3.5-5.1) mmol/L Chloride (98-107) mmol/L Carbon Dioxide (22-30) mmol/L Anion Gap mmol/L BUN (9-20) mg/dL Creatinine (0.66-1.25) mg/dL Est GFR (CKD-EPI)AfAm (>60 ml/min/1.73 sqM) Est GFR (CKD-EPI)NonAf (>60 ml/min/1.73 sqM) Glucose (74-99) mg/dL Calcium (8.4-10.2) mg/dL Magnesium 1.7 (1.6-2.3) mg/dL Total Bilirubin (0.2-1.3) mg/dL AST (17-59) U/L ALT (4-49) U/L Alkaline Phosphatase (38-126) U/L Troponin I <0.012 (0.000-0.034) ng/mL NT-Pro-B Natriuret Pep 27 pg/mL Total Protein (6.3-8.2) g/dL Albumin (3.5-5.0) g/dL Disposition Clinical Impression: Chronic bronchitis Disposition: HOME SELF-CARE Condition: Fair Instructions (If sedation given, give patient instructions): Chronic Bronchitis (DC) Prescriptions: predniSONE 50 mg PO DAILY #5 tab Albuterol Inhaler [Ventolin Hfa Inhaler] 1 - 2 puff INHALATION Q4HR PRN #1 each PRN Reason: Shortness Of Breath Is patient prescribed a controlled substance at d/c from ED?: No Referrals: Ulysses Hernández Jr, DO [Primary Care Provider] - 1-2 days Time of Disposition: 19:01
[2023-07-22 18:26] LABS: INR 0.9 (<1.2); Partial Thromboplastin Time 23.8 sec (22.0-30.0)
[2023-07-22 18:35] LABS: Magnesium 1.7 mg/dL (1.6-2.3)
--- NOTE | 2023-07-22 18:39 | CT ---
EXAMINATION TYPE: CT soft tissue neck wo con DATE OF EXAM: 07/22/2023 COMPARISON: 10/31/2010 HISTORY: loss of voice, SOB CT DLP: 358 mGycm CONTRAST: Patient injected with 0 mL of Isovue 300. TECHNIQUE: Axial images at 3 mm thick sections. Reconstructed images in the coronal plane and sagitt al plane are reviewed. FINDINGS: Limited CT sections are obtained the lung apices. There appears to be some pulmonary fibro sis within the lung apices. CT neck: The torus tubarius and fossa of Rosenmuller are normal. Oven Drier Tender spaces are normal. Para nasal sinuses and mastoid air cells are clear. Parotid glands appear normal and symmetrical. Submandibular glands, are normal. Parapharyngeal spac es are normal No suspicious adenopathy is evident. The hypopharynx appears within normal limits. Vocal cord level appear symmetrical. Thyroid as visualized is normal. Osseous structures are normal. IMPRESSION: 1. Unremarkable soft tissue neck. 2. Suggestion of some peripheral pulmonary fibrosis and lung apices.
[2023-07-22 19:53] VITALS: BP 165/83; PULSE 76; RESP 18
== END 2023-07-22 19:28 | disposition home or self-care (01) ==
LOC: EC 16:54
DX: J42 Unspecified chronic bronchitis (principal); F17.200 Nicotine dependence, unspecified, uncomplicated; F12.90 Cannabis use, unspecified, uncomplicated
CPT/HCPCS: 36415; 70490; 71046; 80053; 83735; 83880; 84484; 85025; 85610; 85730; 93005; 99285

== ENCOUNTER 2024-09-11 06:13 | Emergency (ER) | payer OTHER ==
[2024-09-11] MEDS ORDERED: RX INFO: IV CONTRAST WAS GIVEN 1 EACH MISC MISCELLANE PRN (06:31)
--- NOTE | 2024-09-11 06:35 | ED ---
Chest Pain HPI - General Chief Complaint: Chest Pain Stated Complaint: Chest pain, SOB Time Seen by Provider: 09/11/24 06:17 Source: patient, family, RN notes reviewed Mode of arrival: ambulatory Limitations: no limitations - History of Present Illness Initial Comments: 63-year-old male presents emergency department chief complaint chest pain. 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 Holman in [place]. Patient states that it is noncancerous but this has been causing chronic voice changes, cough. Patient does admit that he is a daily smoker he states he will never quit smoking. Patient denies being diagnosed with COPD or asthma complains of throat, chest discomfort he does not use states the mass in his neck, swelling is increased over last several weeks but he felt it " pop" last night and states has had increasing symptoms. Patient states he has pain to his chest and upper abdomen region denies fevers or chills patient denies any prior cardiac disease. Does have history of hypertension - Related Data Home Medications Medication Instructions Recorded Confirmed HYDROcodone/APAP 10-325MG [Alpine 1 tab PO QID PRN 03/27/18 07/22/23 10-325] Atorvastatin [Lipitor] 10 mg PO DAILY 07/22/23 07/22/23 Losartan [Cozaar] 25 mg PO DAILY 07/22/23 07/22/23 Previous Rx's Medication Instructions Recorded Albuterol Inhaler [Ventolin Hfa 1 - 2 puff INHALATION Q4HR PRN #1 07/22/23 Inhaler] each predniSONE 50 mg PO DAILY #5 tab 07/22/23 Allergies Allergy/AdvReac Type Severity Reaction Status Date / Time No Known Allergies Allergy Verified 09/11/24 06:18 Review of Systems ROS Statement: Those systems with pertinent positive or pertinent negative responses have been documented in the HPI. ROS Other: All systems not noted in ROS Statement are negative. EKG Findings - EKG Comments: EKG Findings:: EKG performed at 6: 24 sinus rhythm rate of 72 UT 195 QRS 96 QT/QTc 393/[address] elevation depression noted - EKG Results: EKG: interpreted by [facility] Past Medical History Past Medical History: Hypertension, Liver Disease, Rheumatoid Arthritis (RA) Additional Past Medical History / Comment(s): INGUINAL HERNIA, migraines, hepatitis C, History of Any Multi-Drug Resistant Organisms: None Reported Past Surgical History: Appendectomy, Hernia Repair Additional Past Surgical History / Comment(s): UMBILICAL HERNIA, rt inguinal hernia repair, Past Anesthesia/Blood Transfusion Reactions: No Reported Reaction Past Psychological History: No Psychological Hx Reported Smoking Status: Current every day smoker Past Alcohol Use History: None Reported Past Drug Use History: Marijuana - Past Family History Mother Family Medical History: No Reported History Additional Family Medical History / Comment(s): . Father Family Medical History: No Reported History General Exam Limitations: no limitations General appearance: alert, in no apparent distress Head exam: Present: atraumatic, normocephalic, normal inspection Eye exam: Present: normal appearance, PERRL, EOMI. Absent: scleral icterus, conjunctival injection, periorbital swelling ENT exam: Present: normal exam, normal oropharynx, mucous membranes moist Neck exam: Present: full ROM. Absent: normal inspection (Anterior neck swelling noted, mild firmness), tenderness, meningismus, lymphadenopathy Respiratory exam: Present: normal lung sounds bilaterally. Absent: respiratory distress, wheezes, rales, rhonchi, stridor Cardiovascular Exam: Present: regular rate, normal rhythm, normal heart sounds. Absent: systolic murmur, diastolic murmur, rubs, gallop, clicks GI/Abdominal exam: Present: soft, normal bowel sounds. Absent: distended, tenderness, guarding, rebound, rigid Neurological exam: Present: alert, oriented X3 Course Vital Signs 09/11/24 09/11/24 06:14 07:58 Temperature 97.4 F L Pulse Rate 78 72 Respiratory 20 21 Rate Blood Pressure 175/93 148/89 O2 Sat by Pulse 98 99 Oximetry Chest Pain MDM - MDM Was pt. sent in by a medical professional or institution (, PA, GEOLOGICAL SURVEY FIELD ASSISTANT, urgent care, hospital, or longterm...) When possible be specific @ -No Did you speak to anyone other than the patient for history (EMS, parent, family, police, friend...)? What history was obtained from this source @ -No Did you review nursing and triage notes (agree or disagree)? Why? @ -I reviewed and agree with nursing and triage notes Were old charts reviewed (outside hosp., previous admission, EMS record, old EKG, old radiological studies, urgent care reports/EKG's, longterm records)? Report findings @ -No old charts were reviewed Differential Diagnosis (chest pain, altered mental status, abdominal pain women, abdominal pain men, vaginal bleeding, weakness, fever, dyspnea, syncope, headache, dizziness, GI bleed, back pain, seizure, CVA, palpatations, mental health, musculoskeletal)? @Differential Dyspnea: Coronary syndrome, arrhythmia, tamponade, asthma, COPD, pulmonary embolism, pneumonia, pneumothorax, pulmonary effusion, anaphylaxis, diabetic ketoacidosis, flailed chest, pulmonary contusion, diaphragmatic rupture, anemia, n euromuscular, this is not meant to be an all-inclusive list. Differential Chest Pain: Stable Angina, Unstable Angina, STEMI, NSTEMI Aortic Dissection, Pneumothorax, Musculoskeletal, Esophageal Spasm GERD, Cholecystitis, Pancreatitis, Zoster, this is not meant to be an all-inclusive list. EKG interpreted by me (3pts min.). @ -As above X-rays interpreted by me (1pt min.). @ -None done CT interpreted by me (1pt min.). @Soft tissue neck showing large cyst soft tissue irregularity, probable abscess or underlying mass 2 x 1.5 cm there is some airway deviation, narrowing and jugular carotid deviation CT chest fibrotic changes no other acute process U/S interpreted by me (1pt. min.). @ -None done What testing was considered but not performed or refused? (CT, X-rays, U/S, labs)? Why? @ -None What meds were considered but not given or refused? Why? @ -None Did you discuss the management of the patient with other professionals (professionals i.e. , PA, GEOLOGICAL SURVEY FIELD ASSISTANT, lab, RT, psych nurse, child protective services social worker, block machine operator, teacher, security vehicle patrol officer, leather case finisher)? Give summary @ -Discussed the case with Dr. Jaramillo on-call ENT felt the patient needs higher level of care, evaluation by his known ENT Dr. Holman. Discuss[place] the [place] [facility] [place] [facility] who accepts transfer for ENT evaluation of Dr. Holman Was smoking cessation discussed for >3mins.? @ -No Was critical care preformed (if so, how long)? @ -No Were there social determinants of health that impacted care today? How? (Homelessness, low income, unemployed, alcoholism, drug addiction, transportation, low edu. Level, literacy, decrease access to med. care, long-term, rehab)? @ -No Was there de-escalation of care discussed even if they declined (Discuss DNR or withdrawal of care, Hospice)? DNR status @ -No What co-morbidities impacted this encounter? (DM, HTN, Smoking, COPD, CAD, Cancer, CVA, ARF, Chemo, Hep., AIDS, mental health diagnosis, sleep apnea, morbid obesity)? @ -None Was patient admitted / discharged? Hospital course, mention meds given and route, prescriptions, significant lab abnormalities, going to OR and other pertinent info. @ -Transferred to [facility] for ENT, surgical evaluation as patient has what appears to be a large anterior abscess, soft tissue swelling. Patient has been observed for several hours without decompensation patient was given Unasyn, steroids, racemic epi patient's had no worsening dyspnea or difficulty breathing. Patient will be transferred EMS for close observation and treatment at outside facility Undiagnosed new problem with uncertain prognosis? @ -No Drug Therapy requiring intensive monitoring for toxicity (Heparin, Nitro, Insulin, Cardizem)? @ -No Were any procedures done? @ -No Diagnosis/symptom? @ anterior neck abscess Acute, or Chronic, or Acute on Chronic? @Acute Uncomplicated (without systemic symptoms) or Complicated (systemic symptoms)? @ -Complicated Side effects of treatment? @ -No Exacerbation, Progression, or Severe Exacerbation? @ -No Poses a threat to life or bodily function? How? (Chest pain, [place], ID, pneumonia, PE, COPD, DKA, ARF, appy, cholecystitis, CVA, Diverticulitis, Homicidal, Suicidal, threat to staff... and all critical care pts) @ -Yes could cause respiratory arrest Disposition Clinical Impression: Neck abscess Disposition: OTHER INSTITUTION NOT DEFINED Condition: Serious Referrals: Ulysses Hernández Jr, DO [Primary Care Provider] - 1-2 days Time of Disposition: 08:13 - Out of Hospital Transfer - Req. Specs Out of Hospital Transfer - Requested Specifics: Other Emergency Center ([facility])
[2024-09-11 06:44] LABS: Basophils # (A) 0.04 10*3/uL (0.00-0.10); Basophils % (A) 0.3 %; Eosinophils # (A) 0.11 10*3/uL (0.04-0.35); Eosinophils % (A) 0.9 %; HCT 39.6 % (39.6-50.0); HGB 13.3 g/dL (13.0-17.0); Lymphocytes # (A) 1.43 10*3/uL (0.90-5.00); Lymphocytes % (A) 11.3 %; MCH 29.3 pg (27.0-32.0); MCHC 33.6 g/dL (32.0-37.0); MCV 87.2 fL (80.0-97.0); Mean Platelet Volume 9.9 fL (9.5-12.2); Monocytes # (A) 1.34 10*3/uL (0.20-1.00); Monocytes % (A) 10.6 %; Neutrophils # (A) 9.65 10*3/uL (1.80-7.70); Neutrophils % (A) 76.1 %; Platelet Count 344 10*3/uL (140-440); RBC 4.54 10*6/uL (4.40-5.60); RDW 12.7 % (11.5-14.5); WBC 12.67 10*3/uL (4.50-10.00)
[2024-09-11] MEDS: SODIUM CHLORIDE 0.9% 1,000 ML IV STA (06:50)
[2024-09-11 06:52] LABS: INR 0.9 (<1.2); Partial Thromboplastin Time 23.7 sec (22.0-30.0); Prothrombin Time 10.5 sec (10.0-12.5)
[2024-09-11 06:54] LABS: ALT 16 U/L (4-49); AST 18 U/L (17-59); African American GFR (CKD) >90 (>60 ml/min/1.73 sqM); Albumin 3.6 g/dL (3.5-5.0); Alkaline Phosphatase 38 U/L (38-126); Anion Gap 10 mmol/L; Blood Urea Nitrogen 15 mg/dL (9-20); Calcium 9.4 mg/dL (8.4-10.2); Carbon Dioxide 28 mmol/L (22-30); Chloride 103 mmol/L (98-107); Glucose 120 mg/dL (74-99); Non-African American GFR(CKD) >90 (>60 ml/min/1.73 sqM); Potassium 3.9 mmol/L (3.5-5.1); Sodium 141 mmol/L (137-145); Total Bilirubin 0.4 mg/dL (0.2-1.3)
--- NOTE | 2024-09-11 07:07 | CT ---
EXAMINATION TYPE: CT chest w con DATE OF EXAM: 09/11/2024 COMPARISON: NONE CLINICAL INDICATION: Male, 63 years old with history of pain, difficulty breathing, neck lump found a couple years ago, pt states it popped, now having neck pain and SOB TECHNIQUE: CT scan of the thorax is performed following with IV Contrast, patient injected with 100 mL of Isovue 300. CT DLP: 548.4 mGycm. Automated Exposure Control for Dose Reduction was Utilized. FINDINGS: LUNGS: There is peripheral reticulation and fibrotic change seen bilaterally with some areas of cysti c change anteriorly in the bilateral upper lungs present. No focal consolidation. No pleural effusion or pneumothorax seen HEART: Size within normal limits. Moderate coronary artery calcifications present. MEDIASTINUM: There are no greater than 1 cm hilar or mediastinal lymph nodes. No pericardial effusi on is seen. OTHER: No additional significant abnormality is seen. IMPRESSION: Pulmonary fibrotic changes are present. No suspicious acute pulmonary process. [facility], , 09/11/2024 7:04 AM
--- NOTE | 2024-09-11 07:17 | CT ---
EXAMINATION TYPE: CT soft tissue neck w con DATE OF EXAM: 09/11/2024 COMPARISON: CT neck July 22, 2023 CLINICAL INDICATION: Male, 63 years old with history of pain, difficulty breathing, neck lump found a couple years ago, pt states it popped, now having neck pain and SOB TECHNIQUE: CT scan of the neck is performed with IV Contrast, patient injected with 100 mL of Isovue 300, axial images are obtained, coronal and sagittal reformatted images are reviewed. CT DLP: 342.8 mGycm. Automated Exposure Control for Dose Reduction was Utilized. FINDINGS: Airway: There is heterogeneous ill-defined soft tissue along the anterolateral aspect of the left hyo id bone axial image 50 with more central hypodense area there is local mass effect causing airway dev iation to the right and effacement of the left piriform sinus. There is leftward deviation of the car otid and jugular vessels and superior aspect of the left thyroid gland. The irregular central hypoden se area measures 2.8 x 1.5 cm axial image 50 x 2.6 cm craniocaudal dimension sagittal image 43. Some rim enhancement is present. No obvious bony destruction. Parotid/submandibular glands: No gross abnormality seen. Carotid/Vascular Structures: Moderate to severe peripheral calcified plaque bilateral carotid bulb le [place] without hemodynamically significant stenosis . Osseous Structures: Levoconvex scoliosis centered upper thoracic spine. There is moderate disc space narrowing and anterior spurring at C7-T1 level . Other: None. IMPRESSION: Marked abnormal irregular soft tissue anterior left neck has significant mass effect caus ing airway deviation to the right. Central small focal fluid collection is seen. Findings suspicious for abscess. Large surrounding soft tissue infection needs to be considered but a malignant neoplasm cannot be excluded. Advise ENT evaluation to further evaluate and treat. [facility], , 09/11/2024 7:14 AM
[2024-09-11] MEDS: KETOROLAC 15 MG/ML 1 ML VIAL IVP STA (07:52)
[2024-09-11] MEDS: DEXAMETHASONE SOD PHOSPHATE 10 MG/ML 1 ML VIAL IVP STA (07:54)
[2024-09-11] MEDS: AMPICILLIN-SULBACTAM 3 GM in SODIUM CHLORIDE 0.9% 100 ML IVPB STA (07:55)
[2024-09-11] MEDS: RACEPINEPHRINE 2.25% NEB 0.5 ML NEBU INHALATION STA (08:09)
[2024-09-11] MEDS: ONDANSETRON 4 MG/2 ML VIAL IVP STA (08:23)
[2024-09-11 08:45] VITALS: BP 140/72; PULSE 75; RESP 22; TEMP 98.4
== END 2024-09-11 08:56 | disposition other institution (70) ==
LOC: EC 06:13
DX: L02.11 Cutaneous abscess of neck (principal); F17.200 Nicotine dependence, unspecified, uncomplicated
CPT/HCPCS: 36415; 94640; 93005; 80053; 83735; 84484; 85025; 85610; 85730; 86140; 87040; 70491; 71260; 99285; 96365; 96375; 96361; J1100; J2405; J0295; J1885; Q9967

== ENCOUNTER 2024-10-07 00:46 | Emergency (ER) | payer OTHER ==
[2024-10-07] MEDS: MORPHINE SULFATE 4 MG/ML SYRINGE IV STA ×2 (01:29→03:27)
[2024-10-07] MEDS: methylPREDNISolone SOD SUCCI 125 MG/2 ML VIAL IV STA (01:30)
[2024-10-07] MEDS: AMPICILLIN-SULBACTAM 3 GM in SODIUM CHLORIDE 0.9% 100 ML IVPB STA (01:30)
--- NOTE | 2024-10-07 01:35 | ED ---
SOB HPI - General Chief Complaint: Shortness of Breath Stated Complaint: Difficulty Breathing Time Seen by Provider: 10/07/24 01:04 Source: patient, family Mode of arrival: wheelchair Limitations: no limitations - History of Present Illness Initial Comments: This patient is a 64-year-old man who presents with complaint of dyspnea. He has recent history of having an abscess to the anterior aspect of the neck on the left side. He had been having dyspnea since earlier in the year, was seen here in June and then again in August, was seen here on September 11 and transferred to [facility]. The patient reportedly had the abscess lanced percutaneously and has been taking amoxicillin since that time. He states that he has continued to feel that the anterior aspect of the neck on the left side was swollen. Tonight he was feeling more short of breath and had been usual. He has not been having chest pain. No hemoptysis. He has been feeling hot and cold. MD Complaint: shortness of breath -: month(s) Radiation: neck Severity: moderate Quality: dull Consistency: constant Improves With: nothing Worsens With: nothing, other Treatments Prior to Arrival: other (Antibiotics) - Related Data Home Medications Medication Instructions Recorded Confirmed HYDROcodone/APAP 10-325MG [[place] 1 tab PO QID PRN 03/27/18 07/22/23 10-325] Atorvastatin [Lipitor] 10 mg PO DAILY 07/22/23 07/22/23 Losartan [Cozaar] 25 mg PO DAILY 07/22/23 07/22/23 Previous Rx's Medication Instructions Recorded Albuterol Inhaler [Ventolin Hfa 1 - 2 puff INHALATION Q4HR PRN #1 07/22/23 Inhaler] each predniSONE 50 mg PO DAILY #5 tab 07/22/23 Allergies Allergy/AdvReac Type Severity Reaction Status Date / Time No Known Allergies Allergy Verified 10/07/24 00:49 Review of Systems ROS Statement: Those systems with pertinent positive or pertinent negative responses have been documented in the HPI. ROS Other: All systems not noted in ROS Statement are negative. Constitutional: Reports: fever (Subjective) ENT: Reports: throat pain Respiratory: Reports: dyspnea, stridor Cardiovascular: Denies: chest pain, edema, syncope Gastrointestinal: Denies: abdominal pain, nausea, vomiting Musculoskeletal: Denies: back pain Skin: Denies: rash Neurological: Denies: headache, weakness Past Medical History Past Medical History: Hypertension, Liver Disease, Rheumatoid Arthritis (RA) Additional Past Medical History / Comment(s): INGUINAL HERNIA, migraines, hepatitis C, History of Any Multi-Drug Resistant Organisms: None Reported Past Surgical History: Appendectomy, Hernia Repair Additional Past Surgical History / Comment(s): UMBILICAL HERNIA, rt inguinal hernia repair, Past Anesthesia/Blood Transfusion Reactions: No Reported Reaction Past Psychological History: No Psychological Hx Reported Smoking Status: Current every day smoker Past Alcohol Use History: None Reported Past Drug Use History: Marijuana - Past Family History Mother Family Medical History: No Reported History Additional Family Medical History / Comment(s): . Father Family Medical History: No Reported History General Exam Limitations: no limitations General appearance: alert, in no apparent distress Head exam: Present: atraumatic, normocephalic Eye exam: Present: normal appearance. Absent: scleral icterus, conjunctival injection ENT exam: Present: normal oropharynx Neck exam: Present: other (The patient does have a small incision anterior neck. Currently no erythema or drainage). Absent: tenderness, meningismus Respiratory exam: Present: respiratory distress, wheezes, rhonchi, stridor, accessory muscle use. Absent: rales, decreased breath sounds Cardiovascular Exam: Present: regular rate, normal rhythm, normal heart sounds. Absent: systolic murmur, diastolic murmur, rubs, gallop GI/Abdominal exam: Present: soft. Absent: distended, tenderness, guarding, rebound, rigid, mass Extremities exam: Present: normal inspection, normal capillary refill. Absent: pedal edema, calf tenderness Back exam: Present: normal inspection. Absent: CVA tenderness (R), CVA tenderness (L) Neurological exam: Present: alert Skin exam: Present: warm, dry, intact, normal color. Absent: rash Course Vital Signs 10/07/24 10/07/24 10/07/24 00:49 01:07 01:30 Temperature 97.5 F L Pulse Rate 81 Respiratory 30 H 22 Rate Blood Pressure 208/87 O2 Sat by Pulse 98 Oximetry Fraction of 60 Inspired Oxygen (FIO2) 10/07/24 10/07/24 10/07/24 01:50 02:40 03:35 Temperature 98.1 F Pulse Rate 67 79 81 Respiratory 20 22 17 Rate Blood Pressure 126/87 173/97 160/89 O2 Sat by Pulse 100 99 97 Oximetry Fraction of Inspired Oxygen (FIO2) Medical Decision Making - Medical Decision Making The patient had chest x-ray that I interpreted as negative for acute infiltrate, pneumothorax, congestive heart failure The patient had CT scan of the neck that by my interpretation showed airway narrowing in the subglottic area Was pt. sent in by a medical professional or institution (BRANDON Cantu, CONFERENCE CENTER MANAGER, urgent care, hospital, or [place] health care facility...) When possible be specific @ -No Did you speak to anyone other than the patient for history (EMS, parent, family, police, friend...)? What history was obtained from this source @ -[The patient's partner did contribute to history Did you review nursing and triage notes (agree or disagree)? Why? @ -I reviewed and agree with nursing and triage notes Were old charts reviewed (outside hosp., previous admission, EMS record, old EKG, old radiological studies, urgent care reports/EKG's, [place] health care facility records)? Report findings @ -Yes, old charts were reviewed Differential Diagnosis (chest pain, altered mental status, abdominal pain women, abdominal pain men, vaginal bleeding, weakness, fever, dyspnea, syncope, headache, dizziness, GI bleed, back pain, seizure, CVA, palpatations, mental health, musculoskeletal)? @ -[Differential Dyspnea: Coronary syndrome, arrhythmia, tamponade, asthma, COPD, pulmonary embolism, pneumonia, pneumothorax, pulmonary effusion, anaphylaxis, diabetic ketoacidosis, flailed chest, pulmonary contusion, diaphragmatic rupture, anemia, neuromus cular, this is not meant to be an all-inclusive list. EKG interpreted by me (3pts min.). @ -As above X-rays interpreted by me (1pt min.). @ -[I interpreted as above CT interpreted by me (1pt min.). @ -I interpreted as above U/S interpreted by me (1pt. min.). @ -[None done What testing was considered but not performed or refused? (CT, X-rays, U/S, labs)? Why? @ -None What meds were considered but not given or refused? Why? @ -None Did you discuss the management of the patient with other professionals (professionals i.e. BRANDON Cantu, CONFERENCE CENTER MANAGER, lab, RT, psych nurse, social services, lodge officer, teacher, customer service officer, spring encaser)? Give summary @ -[I discussed the case with Dr. Wang who was the on-call ENT physician, there is concern about malignancy, and he recommended immediate transfer to a tertiary care facility. Was smoking cessation discussed for >3mins.? @ -Yes Was critical care preformed (if so, how long)? @ -No Were there social determinants of health that impacted care today? How? (Homelessness, low income, unemployed, alcoholism, drug addiction, transportation, low edu. Level, literacy, decrease access to med. care, skilled nursing, rehab)? @ -No Was there de-escalation of care discussed even if they declined (Discuss DNR or withdrawal of care, Hospice)? DNR status @ -No What co-morbidities impacted this encounter? (DM, HTN, Smoking, COPD, CAD, Cancer, CVA, ARF, Chemo, Hep., AIDS, mental health diagnosis, sleep apnea, morbid obesity)? @ -Anterior neck abscess and previously noted airway stenosis. COPD Was patient admitted / discharged? Hospital course, mention meds given and route, prescriptions, significant lab abnormalities, going to OR and other pertinent info. @ -[Patient is 64-year-old man presenting with worsening of his underlying dyspnea. The patient has had care for this condition at [facility], including I&D of what he states was an abscess and also of a biopsy(he states was negative). After discussion with the on-call site safety manager it was re commended that the patient be transferred immediately to the hospital to be seen by his ENT specialist. I discussed the recommendations with the patient and he states that he is not willing to go there and that he is going to sign out AGAINST MEDICAL ADVICE. I did explain that there is risk of impending airway loss and and the patient acknowledges this. The patient states that he will arrange follow-up with his specialist Undiagnosed new problem with uncertain prognosis? @ No] Drug Therapy requiring intensive monitoring for toxicity (Heparin, Nitro, Insulin, Cardizem)? @ No ] Were any procedures done? @ No] Diagnosis/symptom? @Acute dyspnea Subglottic stenosis Anterior neck abscess Acute, or Chronic, or Acute on Chronic? @Acute on chronic Uncomplicated (without systemic symptoms) or Complicated (systemic symptoms)? @Complicated by dyspnea Side effects of treatment? @ -No Exacerbation, Progression, or Severe Exacerbation? @ -No Poses a threat to life or bodily function? How? (Chest pain, [place], [place], pneumonia, PE, COPD, DKA, ARF, appy, cholecystitis, CVA, Diverticulitis, Homicidal, Suicidal, threat to staff... and all critical care pts) @ -Yes All treatments are based on ideal body weight as in ED triage - Lab Data Result diagrams: 10/07/24 01:15 10/07/24 01:15 Lab Results 10/07/24 10/07/24 10/07/24 Range/Units 01:15 01:15 01:15 WBC 9.40 (4.50-10.00) 10*3/uL RBC 4.28 L (4.40-5.60) 10*6/uL Hgb 12.9 L (13.0-17.0) g/dL Hct 37.3 L (39.6-50.0) % MCV 87.1 (80.0-97.0) fL MCH 30.1 (27.0-32.0) pg MCHC 34.6 (32.0-37.0) g/dL Plt Count 327 (140-440) 10*3/uL MPV 10.3 (9.5-12.2) fL Immature Gran % (Auto) 0.3 % Neutrophils % 71.1 % Lymphocytes % 18.9 % Monocytes % 8.7 % Eosinophils % 0.9 % Basophils % 0.1 % Immature Gran # 0.03 (0.00-0.04) 10*3/uL Neutrophils # 6.68 (1.80-7.70) 10*3/uL Lymphocytes # 1.78 (0.90-5.00) 10*3/uL Monocytes # 0.82 (0.20-1.00) 10*3/uL Eosinophils # 0.08 (0.04-0.35) 10*3/uL Basophils # 0.01 (0.00-0.10) 10*3/uL PT 10.6 (10.0-12.5) sec INR 1.0 (<1.2) APTT 24.5 (22.0-30.0) sec Sodium 139 (137-145) mmol/L Potassium 4.0 (3.5-5.1) mmol/L Chloride 101 (98-107) mmol/L Carbon Dioxide 28 (22-30) mmol/L Anion Gap 10 mmol/L BUN 12 (9-20) mg/dL Creatinine 0.65 L (0.66-1.25) mg/dL Est GFR (CKD-EPI)AfAm >90 (>60 ml/min/1.73 sqM) Est GFR (CKD-EPI)NonAf >90 (>60 ml/min/1.73 sqM) Glucose 109 H (74-99) mg/dL Plasma Lactic Acid Corey (0.7-2.0) mmol/L Calcium 9.4 (8.4-10.2) mg/dL Total Bilirubin 0.4 (0.2-1.3) mg/dL AST 20 (17-59) U/L ALT 15 (4-49) U/L Alkaline Phosphatase 33 L (38-126) U/L Troponin I (0.000-0.034) ng/mL C-Reactive Protein 3.8 H (<1.0) mg/dL NT-Pro-B Natriuret Pep 208 pg/mL Total Protein 6.6 (6.3-8.2) g/dL Albumin 3.5 (3.5-5.0) g/dL 10/07/24 10/07/24 Range/Units 01:15 01:15 WBC (4.50-10.00) 10*3/uL RBC (4.40-5.60) 10*6/uL Hgb (13.0-17.0) g/dL Hct (39.6-50.0) % MCV (80.0-97.0) fL MCH (27.0-32.0) pg MCHC (32.0-37.0) g/dL Plt Count (140-440) 10*3/uL MPV (9.5-12.2) fL Immature Gran % (Auto) % Neutrophils % % Lymphocytes % % Monocytes % % Eosinophils % % Basophils % % Immature Gran # (0.00-0.04) 10*3/uL Neutrophils # (1.80-7.70) 10*3/uL Lymphocytes # (0.90-5.00) 10*3/uL Monocytes # (0.20-1.00) 10*3/uL Eosinophils # (0.04-0.35) 10*3/uL Basophils # (0.00-0.10) 10*3/uL PT (10.0-12.5) sec INR (<1.2) APTT (22.0-30.0) sec Sodium (137-145) mmol/L Potassium (3.5-5.1) mmol/L Chloride (98-107) mmol/L Carbon Dioxide (22-30) mmol/L Anion Gap mmol/L BUN (9-20) mg/dL Creatinine (0.66-1.25) mg/dL Est GFR (CKD-EPI)AfAm (>60 ml/min/1.73 sqM) Est GFR (CKD-EPI)NonAf (>60 ml/min/1.73 sqM) Glucose (74-99) mg/dL Plasma Lactic Acid Corey 1.3 (0.7-2.0) mmol/L Calcium (8.4-10.2) mg/dL Total Bilirubin (0.2-1.3) mg/dL AST (17-59) U/L ALT (4-49) U/L Alkaline Phosphatase (38-126) U/L Troponin I <0.012 (0.000-0.034) ng/mL C-Reactive Protein (<1.0) mg/dL NT-Pro-B Natriuret Pep pg/mL Total Protein (6.3-8.2) g/dL Albumin (3.5-5.0) g/dL Disposition Clinical Impression: Subglottic stenosis Disposition: LEFT AGAINST MEDICAL ADVICE Condition: Serious Is patient prescribed a controlled substance at d/c from ED?: No Referrals: Ulysses Hernández Jr, [Primary Care Provider] - 1-2 days
[2024-10-07] MEDS ORDERED: VANCOMYCIN IV PER PHARMACY 1 EACH MISC MISCELLANE PRN (01:45)
[2024-10-07 01:57] LABS: Basophils # (A) 0.01 10*3/uL (0.00-0.10); Basophils % (A) 0.1 %; Eosinophils # (A) 0.08 10*3/uL (0.04-0.35); Eosinophils % (A) 0.9 %; HCT 37.3 % (39.6-50.0); HGB 12.9 g/dL (13.0-17.0); Lymphocytes # (A) 1.78 10*3/uL (0.90-5.00); Lymphocytes % (A) 18.9 %; MCH 30.1 pg (27.0-32.0); MCHC 34.6 g/dL (32.0-37.0); MCV 87.1 fL (80.0-97.0); Mean Platelet Volume 10.3 fL (9.5-12.2); Monocytes # (A) 0.82 10*3/uL (0.20-1.00); Monocytes % (A) 8.7 %; Neutrophils # (A) 6.68 10*3/uL (1.80-7.70); Neutrophils % (A) 71.1 %; Platelet Count 327 10*3/uL (140-440); RBC 4.28 10*6/uL (4.40-5.60); RDW 13.4 % (11.5-14.5)
[2024-10-07 02:06] LABS: Partial Thromboplastin Time 24.5 sec (22.0-30.0); Prothrombin Time 10.6 sec (10.0-12.5)
[2024-10-07 02:17] LABS: ALT 15 U/L (4-49); AST 20 U/L (17-59); African American GFR (CKD) >90 (>60 ml/min/1.73 sqM); Albumin 3.5 g/dL (3.5-5.0); Alkaline Phosphatase 33 U/L (38-126); Anion Gap 10 mmol/L; Blood Urea Nitrogen 12 mg/dL (9-20); C Reactive Protein 3.8 mg/dL (<1.0); Calcium 9.4 mg/dL (8.4-10.2); Carbon Dioxide 28 mmol/L (22-30); Chloride 101 mmol/L (98-107); Glucose 109 mg/dL (74-99); Non-African American GFR(CKD) >90 (>60 ml/min/1.73 sqM); Sodium 139 mmol/L (137-145); Total Bilirubin 0.4 mg/dL (0.2-1.3); Total Protein 6.6 g/dL (6.3-8.2)
[2024-10-07 02:22] LABS: NT-Pro-B-Type Natriuretic Pept 208 pg/mL
[2024-10-07] MEDS: VANCOMYCIN 1,500 MG in SODIUM CHLORIDE 0.9% 500 ML 500 ML IVPB ONE (02:24)
--- NOTE | 2024-10-07 02:50 | CT ---
ADDENDUM - Added by Jw Gilliam MD on 10/07/2024 8:29 PM (-04:00) EXAM: CT Neck With Intravenous Contrast CLINICAL HISTORY: ITS.REASON CT Reason: stridor TECHNIQUE: Axial computed tomography images of the neck with intravenous contrast. CTDI is 9.6 mGy and DLP is 337.7 mGy-cm. This CT exam was performed using one or more of the following dose reduction techniques: automated exposure control, adjustment of the mA and/or kV according to patient size, and/or use of iterative reconstruction technique. COMPARISON: 09/11/2024 FINDINGS: Mildly improved area of abnormality in the left lower larynx/deep neck space. Previously seen large fluid collection has resolved. There is severe airway narrowing at the subglottic level. Impression: Mildly improved area of abnormality in the left lower larynx/deep neck space. Previously seen large fluid collection has resolved. Correlate with ongoing infectious/inflammatory process. Underlying mass not excluded, but difficult to visualize on this exam. Recommend MRI of the neck if there is concern for underlying neoplasm/lesion. There is severe airway narrowing at the subglottic level. EXAM: CT Neck With Intravenous Contrast CLINICAL HISTORY: ITS.REASON CT Reason: stridor TECHNIQUE: Axial computed tomography images of the neck with intravenous contrast. CTDI is 9.6 mGy and DLP is 337.7 mGy-cm. This CT exam was performed using one or more of the following dose reduction techniques: automated exposure control, adjustment of the mA and/or kV according to patient size, and/or use of iterative reconstruction technique. COMPARISON: 09/11/2024 FINDINGS: Mildly improved area of abnormality in the left lower larynx/deep neck space. Previously seen large fluid collection has resolved. There is severe airway narrowing at the subglottic level. Mildly improved area of abnormality in the left lower larynx/deep neck space. Previously seen large fluid collection has resolved. Correlate with ongoing infectious/inflammatory process. There is severe airway narrowing at the subglottic level.
--- NOTE | 2024-10-07 02:53 | XR ---
EXAM: XR Chest, 1 View CLINICAL HISTORY: ITS.REASON XR Reason: dyspnea TECHNIQUE: Frontal view of the chest. COMPARISON: No relevant prior studies available. FINDINGS: Lungs: No consolidation or mass. Slightly prominent interstitial markings Pleural space: No acute findings. Heart: No cardiomegaly. Bones/joints: No acute findings. IMPRESSION: Slightly prominent interstitial markings
[2024-10-07 04:54] VITALS: BP 160/89; PULSE 81; RESP 17; TEMP 98.1
[2024-10-07] MEDS ORDERED: VANCOMYCIN 1,500 MG in SODIUM CHLORIDE 0.9% 500 ML 500 ML IVPB SCH (10:00)
== END 2024-10-07 03:35 | disposition left against medical advice (07) ==
LOC: EC 00:46
DX: J38.6 Stenosis of larynx (principal); F17.200 Nicotine dependence, unspecified, uncomplicated; J44.9 Chronic obstructive pulmonary disease, unspecified
CPT/HCPCS: 99285; 96365; 96367; 96375 ×2; 96376; 36415; 94660; 83880; 80053; 83605; 84484; 85025; 85610; 85730; 86140; 87040; 71045; 70491; J3370; J2270; J0295; Q9967; J2919

== ENCOUNTER 2024-11-03 01:51 | Emergency (ER) | payer OTHER ==
--- NOTE | 2024-11-03 02:08 | ED ---
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 MD Complaint: shortness of breath, pain with inspiration, anxiety -: days(s) Radiation: back Severity: moderate Severity scale (1-10): 7 Consistency: constant Improves With: nothing Worsens With: nothing Known History Of: COPD, other (stridor) Associated Symptoms: denies other symptoms Treatments Prior to Arrival: none - Related Data Home Medications Medication Instructions Recorded Confirmed HYDROcodone/APAP 10-325MG [[place] 1 tab PO QID PRN 03/27/18 07/22/23 10-325] Atorvastatin [Lipitor] 10 mg PO DAILY 07/22/23 07/22/23 Losartan [Cozaar] 25 mg PO DAILY 07/22/23 07/22/23 Previous Rx's Medication Instructions Recorded Albuterol Inhaler [Ventolin Hfa 1 - 2 puff INHALATION Q4HR PRN #1 07/22/23 Inhaler] each predniSONE 50 mg PO DAILY #5 tab 07/22/23 Allergies Allergy/AdvReac Type Severity Reaction Status Date / Time No Known Allergies Allergy Verified 11/03/24 01:59 Review of Systems ROS Statement: Those systems with pertinent positive or pertinent negative responses have been documented in the HPI. ROS Other: All systems not noted in ROS Statement are negative. Past Medical History Past Medical History: Hypertension, Liver Disease, Rheumatoid Arthritis (RA) Additional Past Medical History / Comment(s): INGUINAL HERNIA, migraines, hepatitis C, History of Any Multi-Drug Resistant Organisms: None Reported Past Surgical History: Appendectomy, Hernia Repair Additional Past Surgical History / Comment(s): UMBILICAL HERNIA, rt inguinal hernia repair, Past Anesthesia/Blood Transfusion Reactions: No Reported Reaction Past Psychological History: No Psychological Hx Reported Smoking Status: Current every day smoker Past Alcohol Use History: None Reported Past Drug Use History: Marijuana - Past Family History Mother Family Medical History: No Reported History Additional Family Medical History / Comment(s): . Father Family Medical History: No Reported History General Exam - General Exam Comments Initial Comments: Positive stridor Limitations: no limitations General appearance: alert, in no apparent distress Head exam: Present: atraumatic, normocephalic, normal inspection Eye exam: Present: normal appearance, PERRL, EOMI. Absent: scleral icterus, conjunctival injection, periorbital swelling ENT exam: Present: normal exam, mucous membranes moist Neck exam: Present: normal inspection. Absent: tenderness, meningismus, lymphadenopathy Respiratory exam: Present: normal lung sounds bilaterally. Absent: respiratory distress, wheezes, rales, rhonchi, stridor Cardiovascular Exam: Present: regular rate, normal rhythm, normal heart sounds. Absent: systolic murmur, diastolic murmur, rubs, gallop, clicks GI/Abdominal exam: Present: soft, normal bowel sounds. Absent: distended, tenderness, guarding, rebound, rigid Extremities exam: Present: normal inspection, full ROM, normal capillary refill. Absent: tenderness, pedal edema, joint swelling, calf tenderness Back exam: Present: normal inspection Neurological exam: Present: alert, oriented X3, CN II-XII intact Psychiatric exam: Present: normal affect, normal mood Skin exam: Present: warm, dry, intact, normal color. Absent: rash Course Vital Signs 11/03/24 11/03/24 01:59 02:09 Temperature 98.2 F Pulse Rate 77 73 Respiratory 26 H 36 H Rate Blood Pressure 168/87 O2 Sat by Pulse 100 Oximetry - Reevaluation(s) Reevaluation #1: 11/03/24 02:16 Medical records reviewed Reevaluation #2: 11/03/24 02:54 Patient stridor is mildly improved here in the ER Reevaluation #3: 11/03/24 02:54 Patient informed of results and questions answered Reevaluation #4: Was pt. sent in by a medical professional or institution (, PA, PEWTER FABRICATOR, urgent care, hospital, or [facility]...) When possible be specific @ -no Did you speak to anyone other than the patient for history (EMS, parent, family, police, friend...)? What history was obtained from this source @ -no Did you review nursing and triage notes (agree or disagree)? Why? @ -agree Are old charts reviewed (outside hosp., previous admission, EMS record, old EKG, old radiological studies, urgent care reports/EKG's, [facility] records)? Report findings @ -yes Differential Diagnosis (chest pain, altered mental status, abdominal pain women, abdominal pain men, vaginal bleeding, weakness, fever, dyspnea, syncope, h eadache, dizziness, GI bleed, back pain, seizure, CVA, palpatations, mental health, musculoskeletal)? @ -prior EKG interpreted by me (3pts min.). @ -yes X-rays interpreted by me (1pt min.). @ -yes negative for acute disease CT interpreted by me (1pt min.). @ -no U/S interpreted by me (1pt. min.). @ -no What testing was considered but not performed or refused? (CT, X-rays, U/S, labs)? Why? @ -none What meds were considered but not given or refused? Why? @ -none Did you discuss the management of the patient with other professionals (professionals i.e. , PA, PEWTER FABRICATOR, lab, RT, psych nurse, social media intern, technician trainee, teacher, patrol officer, general manager)? Give summary @ -no Was smoking cessation discussed for >3mins.? @ -no Was critical care preformed (if so, how long)? @ -no Were there social determinants of health that impacted care today? How? (Homelessness, low income, unemployed, alcoholism, drug addiction, transportation, low edu. Level, literacy, decrease access to med. care, senior living, rehab)? @ -none Was there de-escalation of care discussed even if they declined (Discuss DNR or withdrawal of care, Hospice)? DNR status @ -no What co-morbidities impacted this encounter? (DM, HTN, Smoking, COPD, CAD, Cancer, CVA, ARF, Chemo, Hep., AIDS, mental health diagnosis, sleep apnea, morbid obesity)? @ -none Was patient admitted / discharged? Hospital course, mention meds given and route, prescriptions, significant lab abnormalities, going to OR and other pertinent info. @ - Undiagnosed new problem with uncertain prognosis? @ -no Drug Therapy requiring intensive monitoring for toxicity (Heparin, Nitro, Insulin, Cardizem)? @ -no Were any procedures done? @ -no Diagnosis/symptom? @ - Acute, or Chronic, or Acute on Chronic? @ -Acute Uncomplicated (without systemic symptoms) or Complicated (systemic symptoms)? @ -Complicated Side effects of treatment? @ -no Exacerbation, Progression, or Severe Exacerbation? @ -exacerbation Poses a threat to life or bodily function? How? (Chest pain, [place], [place], pneumonia, PE, COPD, DKA, ARF, appy, cholecystitis, CVA, Diverticulitis, Homicidal, Suicidal, threat to staff... and all critical care pts) @ -yes Reevaluation #5: Differential Dyspnea: Coronary syndrome, arrhythmia, tamponade, asthma, COPD, pulmonary embolism, pneumonia, pneumothorax, pulmonary effusion, anaphylaxis, diabetic ketoacidosis, flailed chest, pulmonary contusion, diaphragmatic rupture, anemia, neuromuscular, this is not meant to be an all-inclusive list. Medical Decision Making - Medical Decision Making I had a 64 male to the ER for evaluation of stridor like activity known history of vocal cord cyst stridor "improved here in the ER breathing feels improved and patient can be discharged home - Lab Data Result diagrams: 11/03/24 02:15 Lab Results 11/03/24 Range/Units 02:15 WBC 8.90 (4.50-10.00) 10*3/uL RBC 4.52 (4.40-5.60) 10*6/uL Hgb 13.1 (13.0-17.0) g/dL Hct 40.7 (39.6-50.0) % MCV 90.0 (80.0-97.0) fL MCH 29.0 (27.0-32.0) pg MCHC 32.2 (32.0-37.0) g/dL Plt Count 302 (140-440) 10*3/uL MPV 9.8 (9.5-12.2) fL Immature Gran % (Auto) 0.3 % Neutrophils % 69.1 % Lymphocytes % 19.9 % Monocytes % 9.0 % Eosinophils % 1.5 % Basophils % 0.2 % Immature Gran # 0.03 (0.00-0.04) 10*3/uL Neutrophils # 6.15 (1.80-7.70) 10*3/uL Lymphocytes # 1.77 (0.90-5.00) 10*3/uL Monocytes # 0.80 (0.20-1.00) 10*3/uL Eosinophils # 0.13 (0.04-0.35) 10*3/uL Basophils # 0.02 (0.00-0.10) 10*3/uL - EKG Data -: EKG Interpreted by Me (EKG sinus 72 SD 207 QRS 89 QTc 424) - Radiology Data Radiology results: report reviewed (Chest x-ray is negative for acute disease), image reviewed Disposition Clinical Impression: Stridor, Subglottic stenosis Disposition: HOME SELF-CARE Instructions (If sedation given, give patient instructions): Reactive Airways Disease (ED) Is patient prescribed a controlled substance at d/c from ED?: No Referrals: Ulysses Hernández Jr, [Primary Care Provider] - 1-2 days Time of Disposition: 03:00
[2024-11-03 02:35] LABS: Basophils # (A) 0.02 10*3/uL (0.00-0.10); Basophils % (A) 0.2 %; Eosinophils # (A) 0.13 10*3/uL (0.04-0.35); Eosinophils % (A) 1.5 %; HCT 40.7 % (39.6-50.0); HGB 13.1 g/dL (13.0-17.0); Lymphocytes # (A) 1.77 10*3/uL (0.90-5.00); Lymphocytes % (A) 19.9 %; MCH 29.0 pg (27.0-32.0); MCHC 32.2 g/dL (32.0-37.0); MCV 90.0 fL (80.0-97.0); Monocytes # (A) 0.80 10*3/uL (0.20-1.00); Monocytes % (A) 9.0 %; Neutrophils # (A) 6.15 10*3/uL (1.80-7.70); Neutrophils % (A) 69.1 %; Platelet Count 302 10*3/uL (140-440); RBC 4.52 10*6/uL (4.40-5.60); RDW 14.0 % (11.5-14.5); WBC 8.90 10*3/uL (4.50-10.00)
[2024-11-03] MEDS: HYDROmorphone 1 MG/ML 1 ML SYRINGE IVP STA (02:38)
[2024-11-03] MEDS: ONDANSETRON 4 MG/2 ML VIAL IVP STA (02:38)
[2024-11-03] MEDS: SODIUM CHLORIDE 0.9% 1,000 ML IV ONE (02:41)
[2024-11-03] MEDS: methylPREDNISolone SOD SUCCI 125 MG/2 ML VIAL IV STA (02:41)
[2024-11-03] MEDS: DEXAMETHASONE SOD PHOSPHATE 10 MG/ML 1 ML VIAL IVP STA (02:42)
[2024-11-03] MEDS: RACEPINEPHRINE 2.25% NEB 0.5 ML NEBU INHALATION STA (02:53)
[2024-11-03 02:54] LABS: ALT 26 U/L (4-49); AST 28 U/L (17-59); African American GFR (CKD) >90 (>60 ml/min/1.73 sqM); Albumin 3.9 g/dL (3.5-5.0); Alkaline Phosphatase 33 U/L (38-126); Anion Gap 10 mmol/L; Blood Urea Nitrogen 14 mg/dL (9-20); Calcium 9.3 mg/dL (8.4-10.2); Carbon Dioxide 29 mmol/L (22-30); Chloride 100 mmol/L (98-107); Glucose 121 mg/dL (74-99); Magnesium 1.9 mg/dL (1.6-2.3); Non-African American GFR(CKD) >90 (>60 ml/min/1.73 sqM); Potassium 4.3 mmol/L (3.5-5.1); Sodium 139 mmol/L (137-145); Total Protein 7.1 g/dL (6.3-8.2)
[2024-11-03 03:03] LABS: NT-Pro-B-Type Natriuretic Pept 127 pg/mL
[2024-11-03] MEDS: HYDROmorphone 0.5 MG/0.5 ML SYRINGE IVP STA (04:16)
[2024-11-03] MEDS: KETOROLAC 15 MG/ML 1 ML VIAL IVP STA (04:17)
[2024-11-03 04:38] VITALS: BP 159/78; PULSE 76; RESP 18; TEMP 98
--- NOTE | 2024-11-03 04:59 | XR ---
EXAM: XR Chest, 1 View CLINICAL HISTORY: ITS.REASON XR Reason: sob TECHNIQUE: Frontal view of the chest. COMPARISON: 10/07/2024 FINDINGS: Lungs: Worsening interstitial/airspace opacity in the left mid lateral lung field which could be secondary to worsening fibrotic change, however could also be infectious or inflammatory. Mild diffuse bilateral coarse and interstitial markings secondary to fibrotic change. Pleural space: Unremarkable. No pneumothorax. Heart: Unremarkable. No cardiomegaly. Mediastinum: Unremarkable. Normal mediastinal contour. Bones/joints: Unremarkable. No acute fracture. IMPRESSION: 1. Worsening interstitial/airspace opacity in the left mid lateral lung field which could be secondary to worsening fibrotic change, however could also be infectious or inflammatory. 2. Mild diffuse bilateral coarse and interstitial markings secondary to fibrotic change.
== END 2024-11-03 04:38 | disposition home or self-care (01) ==
LOC: EC 01:51
DX: J38.6 Stenosis of larynx (principal); F17.200 Nicotine dependence, unspecified, uncomplicated
CPT/HCPCS: 36415; 94640; 93005; 83880; 80053; 83735; 84484; 85025; 71045; 99285; 96374; 96375; 96376; 96361; J1100; J2405; J1171 ×2; J1885; J2919

== ENCOUNTER 2024-11-12 00:10 | Emergency (ER) | payer OTHER ==
--- NOTE | 2024-11-12 00:41 | ED ---
SOB HPI - General Chief Complaint: Shortness of Breath Stated Complaint: BETY Time Seen by Provider: 11/12/24 00:12 Source: patient, EMS Mode of arrival: EMS - History of Present Illness Initial Comments: This patient is a 64-year-old man with history of abscess to the anterior aspect of the neck who arrives by ambulance to have evaluation of worsening shortness of breath. The patient is receiving care for this issue from Dr. Holman affiliated with [facility]. He was last seen there on Monday. He was started on 2 antifungal medications. He is taking Diflucan and also nystatin swish and swallow. The patient is also on antibiotics including Keflex and metronidazole. Patient states that his breathing became much worse and his voice was hoarse with unusual starting within the past couple of hours. He has not noted fever or chills. The patient's partner is with him who states that he has been having some whitish drainage from the anterior aspect of the neck. There also appears to be increase in swelling versus what it had look like when he was seen at the clinic last week. MD Complaint: shortness of breath -: hour(s) Radiation: neck Severity: moderate Quality: aching Consistency: constant Worsens With: nothing Known History Of: other Associated Symptoms: cough Treatments Prior to Arrival: none - Related Data Home Oxygen Therapy: No Home Medications Medication Instructions Recorded Confirmed HYDROcodone/APAP 10-325MG [[place] 1 tab PO QID PRN 03/27/18 07/22/23 10-325] Atorvastatin [Lipitor] 10 mg PO DAILY 07/22/23 07/22/23 Losartan [Cozaar] 25 mg PO DAILY 07/22/23 07/22/23 Previous Rx's Medication Instructions Recorded Albuterol Inhaler [Ventolin Hfa 1 - 2 puff INHALATION Q4HR PRN #1 07/22/23 Inhaler] each predniSONE 50 mg PO DAILY #5 tab 07/22/23 Allergies Allergy/AdvReac Type Severity Reaction Status Date / Time No Known Allergies Allergy Verified 11/12/24 00:18 Review of Systems ROS Statement: Those systems with pertinent positive or pertinent negative responses have been documented in the HPI. ROS Other: All systems not noted in ROS Statement are negative. Constitutional: Denies: fever, chills ENT: Reports: throat pain Respiratory: Reports: cough, dyspnea, stridor Cardiovascular: Denies: chest pain, palpitations Gastrointestinal: Denies: abdominal pain, vomiting, diarrhea Genitourinary: Denies: dysuria Musculoskeletal: Denies: back pain Skin: Denies: rash Neurological: Denies: headache, weakness Past Medical History Past Medical History: Hypertension, Liver Disease, Rheumatoid Arthritis (RA) Additional Past Medical History / Comment(s): INGUINAL HERNIA, migraines, hepatitis C, History of Any Multi-Drug Resistant Organisms: None Reported Past Surgical History: Appendectomy, Hernia Repair Additional Past Surgical History / Comment(s): UMBILICAL HERNIA, rt inguinal hernia repair, Past Anesthesia/Blood Transfusion Reactions: No Reported Reaction Past Psychological History: No Psychological Hx Reported Smoking Status: Current every day smoker Past Alcohol Use History: None Reported Past Drug Use History: Marijuana - Past Family History Mother Family Medical History: No Reported History Additional Family Medical History / Comment(s): . Father Family Medical History: No Reported History General Exam General appearance: alert, in distress Head exam: Present: atraumatic, normocephalic Eye exam: Present: normal appearance. Absent: scleral icterus, conjunctival injection Respiratory exam: Present: respiratory distress, stridor. Absent: wheezes, r ales, rhonchi, chest wall tenderness, accessory muscle use Cardiovascular Exam: Present: regular rate, normal rhythm, normal heart sounds. Absent: systolic murmur, diastolic murmur, rubs, gallop GI/Abdominal exam: Present: soft. Absent: distended, tenderness, guarding, rebound, rigid, mass Extremities exam: Present: normal inspection, normal capillary refill. Absent: pedal edema, calf tenderness Back exam: Present: normal inspection Neurological exam: Present: alert Skin exam: Present: warm, dry, intact, normal color. Absent: rash Course Vital Signs 11/12/24 11/12/24 11/12/24 00:11 00:19 02:40 Temperature 97.9 F Pulse Rate 75 75 68 Respiratory 22 22 Rate Blood Pressure 201/89 179/92 O2 Sat by Pulse 98 96 Oximetry 11/12/24 11/12/24 11/12/24 02:50 03:37 04:08 Temperature 98.5 F Pulse Rate 77 90 75 Respiratory 18 18 Rate Blood Pressure 177/95 165/76 O2 Sat by Pulse 97 97 Oximetry Medical Decision Making - Medical Decision Making Was pt. sent in by a medical professional or institution (BRANDON Cantu, COMMERCIAL LOAN ASSISTANT, urgent care, hospital, or snf...) When possible be specific @ -[No] Did you speak to anyone other than the patient for history (EMS, parent, family, police, friend...)? What history was obtained from this source @ -[No] Did you review nursing and triage notes (agree or disagree)? Why? @ -[I reviewed and agree with nursing and triage notes] Were old charts reviewed (outside hosp., previous admission, EMS record, old EKG, old radiological studies, urgent care reports/EKG's, snf records)? Report findings @ -[No old charts were reviewed] Differential Diagnosis (chest pain, altered mental status, abdominal pain women, abdominal pain men, vaginal bleeding, weakness, fever, dyspnea, syncope, headache, dizziness, GI bleed, back pain, seizure, CVA, palpatations, mental health, musculoskeletal)? @ -[not applicable] EKG interpreted by me (3pts min.). @ -[As above] X-rays interpreted by me (1pt min.). @ -[None done] CT interpreted by me (1pt min.). @ -[None done] U/S interpreted by me (1pt. min.). @ -[None done] What testing was considered but not performed or refused? (CT, X-rays, U/S, labs)? Why? @ -[None] What meds were considered but not given or refused? Why? @ -[None] Did you discuss the management of the patient with other professionals (professionals i.e. BRANDON Cantu, COMMERCIAL LOAN ASSISTANT, lab, RT, psych nurse, foster care social worker, casting cleaner, teacher, third officer, disability case manager)? Give summary @ -[No] Was smoking cessation discussed for >3mins.? @ -[No] Was critical care preformed (if so, how long)? @ -[No] Were there social determinants of health that impacted care today? How? (Homelessness, low income, unemployed, alcoholism, drug addiction, transportation, low edu. Level, literacy, decrease access to med. care, shelter, rehab)? @ -[No] Was there de-escalation of care discussed even if they declined (Discuss DNR or withdrawal of care, Hospice)? DNR status @ -[No] What co-morbidities impacted this encounter? (DM, HTN, Smoking, COPD, CAD, Cancer, CVA, ARF, Chemo, Hep., AIDS, mental health diagnosis, sleep apnea, morbid obesity)? @ -[Chronic anterior neck infection and airway narrowing. Smoking. COPD Was patient admitted / discharged? Hospital course, mention meds given and route, prescriptions, significant lab abnormalities, going to OR and other pertinent info. @ -[This patient is a 64-year-old man with history of chronic anterior neck infection. He presents with shortness of breath and stridor. The patient's workup performed and he is treated. The patient is feeling better I did recommend that we transfer him back to have more comprehensive evaluation by the ENT physician that is familiar with his case and at this point he is feeling better, wanting to go home and will arrange follow-up in the morning. He under stands there is risk of loss of airway and by asphyxiation. Undiagnosed new problem with uncertain prognosis? @ -[No] Drug Therapy requiring intensive monitoring for toxicity (Heparin, Nitro, Insulin, Cardizem)? @ -[No] Were any procedures done? @ -[No] Diagnosis/symptom? @ -[Acute stridor Chronic anterior neck infection Chronic airway narrowing Acute, or Chronic, or Acute on Chronic? @ -[Acute on chronic Uncomplicated (without systemic symptoms) or Complicated (systemic symptoms)? @ -[Complicated by dyspnea Side effects of treatment? @ -[No] Exacerbation, Progression, or Severe Exacerbation? @ -[No] Poses a threat to life or bodily function? How? (Chest pain, [place], [place], pneumonia, PE, COPD, DKA, ARF, appy, cholecystitis, CVA, Diverticulitis, Homicidal, Suicidal, threat to staff... and all critical care pts) @ -[No] All treatments are based on ideal body weight as in ED triage - Lab Data Result diagrams: 11/12/24 00:17 11/12/24 00:17 Lab Results 11/12/24 11/12/24 11/12/24 Range/Units 00:17 00:17 00:17 WBC 13.61 H (4.50-10.00) 10*3/uL RBC 4.41 (4.40-5.60) 10*6/uL Hgb 12.8 L (13.0-17.0) g/dL Hct 38.8 L (39.6-50.0) % MCV 88.0 (80.0-97.0) fL MCH 29.0 (27.0-32.0) pg MCHC 33.0 (32.0-37.0) g/dL Plt Count 392 (140-440) 10*3/uL MPV 9.9 (9.5-12.2) fL Immature Gran % (Auto) 0.5 % Neutrophils % 70.2 % Lymphocytes % 17.1 % Monocytes % 11.3 % Eosinophils % 0.8 % Basophils % 0.1 % Immature Gran # 0.07 H (0.00-0.04) 10*3/uL Neutrophils # 9.55 H (1.80-7.70) 10*3/uL Lymphocytes # 2.33 (0.90-5.00) 10*3/uL Monocytes # 1.54 H (0.20-1.00) 10*3/uL Eosinophils # 0.11 (0.04-0.35) 10*3/uL Basophils # 0.01 (0.00-0.10) 10*3/uL Sodium 137 (137-145) mmol/L Potassium 3.4 L (3.5-5.1) mmol/L Chloride 99 (98-107) mmol/L Carbon Dioxide 27 (22-30) mmol/L Anion Gap 11 mmol/L BUN 7 L (9-20) mg/dL Creatinine 0.60 L (0.66-1.25) mg/dL Est GFR (CKD-EPI)AfAm >90 (>60 ml/min/1.73 sqM) Est GFR (CKD-EPI)NonAf >90 (>60 ml/min/1.73 sqM) Glucose 131 H (74-99) mg/dL Plasma Lactic Acid Corey 1.1 (0.7-2.0) mmol/L Calcium 9.3 (8.4-10.2) mg/dL Total Bilirubin 0.6 (0.2-1.3) mg/dL AST 23 (17-59) U/L ALT 17 (4-49) U/L Alkaline Phosphatase 32 L (38-126) U/L C-Reactive Protein 4.3 H (<1.0) mg/dL Total Protein 6.5 (6.3-8.2) g/dL Albumin 3.5 (3.5-5.0) g/dL - EKG Data -: EKG Interpreted by Me EKG shows normal: sinus rhythm, axis (Normal), intervals (Normal), QRS complexes (Normal), ST-T waves (Normal) Rate: normal (Rate 76 bpm) Disposition Clinical Impression: Stridor Disposition: HOME SELF-CARE Condition: Good Instructions (If sedation given, give patient instructions): Dyspnea (ED) Is patient prescribed a controlled substance at d/c from ED?: No Referrals: Ulysses Hernández Jr, DO [Primary Care Provider] - 1-2 days
[2024-11-12] MEDS: MORPHINE SULFATE 4 MG/ML SYRINGE IV STA (00:46)
[2024-11-12 00:54] LABS: Basophils # (A) 0.01 10*3/uL (0.00-0.10); Basophils % (A) 0.1 %; Eosinophils # (A) 0.11 10*3/uL (0.04-0.35); Eosinophils % (A) 0.8 %; HCT 38.8 % (39.6-50.0); HGB 12.8 g/dL (13.0-17.0); Lymphocytes # (A) 2.33 10*3/uL (0.90-5.00); Lymphocytes % (A) 17.1 %; MCH 29.0 pg (27.0-32.0); MCHC 33.0 g/dL (32.0-37.0); MCV 88.0 fL (80.0-97.0); Monocytes # (A) 1.54 10*3/uL (0.20-1.00); Monocytes % (A) 11.3 %; Neutrophils # (A) 9.55 10*3/uL (1.80-7.70); Neutrophils % (A) 70.2 %; Platelet Count 392 10*3/uL (140-440); RBC 4.41 10*6/uL (4.40-5.60); RDW 14.0 % (11.5-14.5); WBC 13.61 10*3/uL (4.50-10.00)
[2024-11-12 01:04] LABS: ALT 17 U/L (4-49); AST 23 U/L (17-59); African American GFR (CKD) >90 (>60 ml/min/1.73 sqM); Albumin 3.5 g/dL (3.5-5.0); Alkaline Phosphatase 32 U/L (38-126); Anion Gap 11 mmol/L; Blood Urea Nitrogen 7 mg/dL (9-20); Calcium 9.3 mg/dL (8.4-10.2); Carbon Dioxide 27 mmol/L (22-30); Chloride 99 mmol/L (98-107); Glucose 131 mg/dL (74-99); Non-African American GFR(CKD) >90 (>60 ml/min/1.73 sqM); Potassium 3.4 mmol/L (3.5-5.1); Sodium 137 mmol/L (137-145); Total Protein 6.5 g/dL (6.3-8.2)
[2024-11-12] MEDS: RACEPINEPHRINE 2.25% NEB 0.5 ML NEBU INHALATION STA (02:38)
[2024-11-12] MEDS: NICOTINE 21MG/24HR PATCH TRANSDERM STA (03:24)
[2024-11-12 03:38] VITALS: RESP 18
[2024-11-12] MEDS ORDERED: MAG HYDROX/AL HYDROX/SIMETH 30 ML CUP PO PRN (03:38)
[2024-11-12 04:09] VITALS: BP 165/76; PULSE 75; TEMP 98.5
== END 2024-11-12 04:09 | disposition home or self-care (01) ==
LOC: EC 00:10
DX: R06.1 Stridor (principal); J44.9 Chronic obstructive pulmonary disease, unspecified; J98.8 Other specified respiratory disorders; F17.200 Nicotine dependence, unspecified, uncomplicated
CPT/HCPCS: 36415; 94640; 93005; 80053; 83605; 85025; 86140; 99285; 96374; S4990; J2270

== ENCOUNTER 2024-11-20 23:35 | Emergency (ER) | payer OTHER ==
[2024-11-20 23:45] VITALS: BP 116/52; TEMP 98.1
[2024-11-21 00:32] VITALS: PULSE 73; RESP 16
--- NOTE | 2024-11-21 00:48 | ED ---
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 Patient had possible dislodged tracheostomy at home. Either the patient or paramedics were able to replace the tube without issue. However the patient lost the ability to speak and was previously speaking through a speaking valve. Patient had stitches removed this morning at [facility] the [facility]. No difficulty breathing. No bleeding. - Related Data Home Medications Medication Instructions Recorded Confirmed HYDROcodone/APAP 10-325MG [[place] 1 tab PO QID PRN 03/27/18 07/22/23 10-325] Atorvastatin [Lipitor] 10 mg PO DAILY 07/22/23 07/22/23 Losartan [Cozaar] 25 mg PO DAILY 07/22/23 07/22/23 Previous Rx's Medication Instructions Recorded Albuterol Inhaler [Ventolin Hfa 1 - 2 puff INHALATION Q4HR PRN #1 07/22/23 Inhaler] each predniSONE 50 mg PO DAILY #5 tab 07/22/23 Allergies Allergy/AdvReac Type Severity Reaction Status Date / Time No Known Allergies Allergy Verified 11/12/24 00:18 Review of Systems ROS Statement: Those systems with pertinent positive or pertinent negative responses have been documented in the HPI. ROS Other: All systems not noted in ROS Statement are negative. Past Medical History Past Medical History: Hypertension, Liver Disease, Rheumatoid Arthritis (RA) Additional Past Medical History / Comment(s): INGUINAL HERNIA, migraines, hepatitis C, History of Any Multi-Drug Resistant Organisms: None Reported Past Surgical History: Appendectomy, Hernia Repair Additional Past Surgical History / Comment(s): UMBILICAL HERNIA, rt inguinal hernia repair, Past Anesthesia/Blood Transfusion Reactions: No Reported Reaction Past Psychological History: No Psychological Hx Reported Smoking Status: Current every day smoker Past Alcohol Use History: None Reported Past Drug Use History: Marijuana - Past Family History Mother Family Medical History: No Reported History Additional Family Medical History / Comment(s): . Father Family Medical History: No Reported History General Exam General appearance: alert, in no apparent distress Head exam: Present: atraumatic, normocephalic Eye exam: Present: normal appearance, PERRL ENT exam: Present: normal exam Neck exam: Present: other (Granulation tissue around the tracheostomy, no bleeding.). Absent: tenderness, meningismus Respiratory exam: Present: normal lung sounds bilaterally. Absent: respiratory distress, wheezes Cardiovascular Exam: Present: regular rate, normal rhythm GI/Abdominal exam: Present: soft. Absent: distended, tenderness, guarding, rebound Course Vital Signs 11/20/24 11/21/24 23:37 00:31 Temperature 98.1 F Pulse Rate 80 73 Respiratory 20 16 Rate Blood Pressure 116/52 O2 Sat by Pulse 95 94 L Oximetry Medical Decision Making - Medical Decision Making Was pt. sent in by a medical professional or institution (, BRANDON, PATTERN CHAIN BUILDER, urgent care, hospital, or long term...) When possible be specific @ -No Did you speak to anyone other than the patient for history (EMS, parent, family, police, friend...)? What history was obtained from this source @ -No Did you review nursing and triage notes (agree or disagree)? Why? @ -I reviewed and agree with nursing and triage notes Were old charts reviewed (outside hosp., previous admission, EMS record, old EKG, old radiological studies, urgent care reports/EKG's, long term records)? Report findings @ -No old charts were reviewed Differential Diagnosis: dislodged trachea, upper airway obstruction EKG interpreted by me (3pts min.). @ -As above X-rays interpreted by me (1pt min.). @ -None done CT interpreted by me (1pt min.). @ -None done U/S interpreted by me (1pt. min.). @ -None done What testing was considered but not performed or refused? (CT, X-rays, U/S, labs)? Why? @ -None What meds were considered but not given or refused? Why? @ -None Did you discuss the management of the patient with other professionals (professionals i.e. BRANDON Cantu, PATTERN CHAIN BUILDER, lab, RT, psych nurse, executive secretary social welfare, field crop harvest contractor, teacher, vessel traffic officer, case management manager)? Give summary @ -No Was smoking cessation discussed for >3mins.? @ -No Was critical care preformed (if so, how long)? @ -No Were there social determinants of health that impacted care today? How? (Homelessness, low income, unemployed, alcoholism, drug addiction, transportation, low edu. Level, literacy, decrease access to med. care, long-term, rehab)? @ -No Was there de-escalation of care discussed even if they declined (Discuss DNR or withdrawal of care, Hospice)? DNR status @ -No What co-morbidities impacted this encounter? (DM, HTN, Smoking, COPD, CAD, Cancer, CVA, ARF, Chemo, Hep., AIDS, mental health diagnosis, sleep apnea, morbid obesity)? @ -None Was patient admitted / discharged? Hospital course, mention meds given and route, prescriptions, significant lab abnormalities, going to OR and other pertinent info. @ -[64-year-old male with recent tracheostomy presents after trach was apparently dislodged. This was replaced prior to arrival. The speaking valve was replaced and a new dressing was applied. Patient has stable vitals, normal oxygenation and was eager for discharge. He will follow-up with his surgeon to inform them of the issue. Undiagnosed new problem with uncertain prognosis? @ -No Drug Therapy requiring intensive monitoring for toxicity (Heparin, Nitro, Insulin, Cardizem)? @ -No Were any procedures done? @ -No Diagnosis/symptom? @Dislodged tracheostomy tube Acute, or Chronic, or Acute on Chronic? @ -Acute Uncomplicated (without systemic symptoms) or Complicated (systemic symptoms)? @ -Default Side effects of treatment? @ -No Exacerbation, Progression, or Severe Exacerbation? @ -No Poses a threat to life or bodily function? How? (Chest pain, [place], [place], pneumonia, PE, COPD, DKA, ARF, appy, cholecystitis, CVA, Diverticulitis, Homicidal, Suicidal, threat to staff... and all critical care pts) @ -No Disposition Clinical Impression: Tracheostomy complication Disposition: HOME SELF-CARE Condition: Fair Instructions (If sedation given, give patient instructions): Tracheostomy Care (ED) Is patient prescribed a controlled substance at d/c from ED?: No Referrals: Ulysses Hernández Jr, DO [Primary Care Provider] - 1-2 days Time of Disposition: 00:48
== END 2024-11-21 01:12 | disposition home or self-care (01) ==
LOC: EC 23:35
DX: J95.03 Malfunction of tracheostomy stoma (principal); F17.200 Nicotine dependence, unspecified, uncomplicated
CPT/HCPCS: 99284